=== PATIENT | female | born 1940 | race Caucasian/White ===

== ENCOUNTER 2017-12-23 06:53 | Inpatient (IN) | payer MEDICARE ==
[2017-12-23] MEDS ORDERED: Ondansetron INJ* 2 MG/ML VIAL IV ONE (07:08)
[2017-12-23] MEDS ORDERED: NS 0.9% 1000 ML* 1,000 ML IV ONE ×2 (07:08→16:22)
[2017-12-23] MEDS ORDERED: fentaNYL* 50 MCG/ML 2 ML VIAL (100 MCG VIAL) IV SLOW PU ONE ×2 (07:10→08:14)
--- NOTE | 2017-12-23 07:22 | ED ---
Abdominal Pain/Female - HPI Summary HPI Summary: Patient is a 77-year-old female who presents emergency department for severe abdominal pain started around 0400 today. Associated symptoms of shortness of breath. Patient denies fever, chest pain, vomiting, diarrhea, constipation, urinary symptoms. Surgical history of appendectomy. Symptoms are moderate in severity. Movement makes symptoms worse. Nothing makes symptoms better. Pain does not radiate into back. Past medical history of asthma, diabetes and hypercholesterolemia. - History of Current Complaint Chief Complaint: EDAbdPain Stated Complaint: ABD PAIN Time Seen by Provider: 12/23/17 07:02 Hx Obtained From: Patient Pain Intensity: 10 Allergies/Adverse Reactions: Allergies Allergy/AdvReac Type Severity Reaction Status Date / Time formoterol [From Dulera] Allergy Unknown Verified 12/23/17 07:16 Reaction Details mometasone furoate Allergy Unknown Verified 12/23/17 07:16 [From Dulera] Reaction Details morphine Allergy Unknown Verified 12/23/17 07:16 Reaction Details oxycodone [From Percocet] Allergy Unknown Verified 12/23/17 07:16 Reaction Details povidone-iodine Allergy Unknown Verified 12/23/17 07:16 [From Betadine] Reaction Details propoxyphene [From Darvon] Allergy Unknown Verified 12/23/17 07:16 Reaction Details soap [From Betadine] Allergy Unknown Verified 12/23/17 07:16 Reaction Details tramadol Allergy Unknown Verified 12/23/17 07:16 Reaction Details adhesives Allergy Unknown Uncoded 01/03/13 15:06 Reaction Details Home Medications: Home Medications Albuterol inh POWDER (NF) [Proair Respiclick] 1 puff INH DAILY 12/23/17 [ History Confirmed 12/23/17] Cholecalciferol TAB* [Vitamin D TAB*] 1,000 unit PO DAILY 12/23/17 [History Confirmed 12/23/17] Cyanocobalamin (Vitamin B-12) [Vitamin B-12] 100 mcg PO DAILY 12/23/17 [History Confirmed 12/23/17] Docusate Sodium [Colace] 100 mg PO DAILY 12/23/17 [History Confirmed 12/23/17] Levocetirizine Dihydrochloride [Levocetirizine Dihydrochl] 5 mg PO DAILY [History Confirmed 12/23/17] Linagliptin/Metformin HCl [Jentadueto Xr 5-1000 mg] 1 tab PO DAILY 12/23/17 [ History Confirmed 12/23/17] Meclizine TAB* [Antivert 12.5 TAB*] 25 mg PO TID PRN 12/23/17 [History Confirmed 12/23/17] Menthol [Aspercreme Heat] 10 % EX SEE INSTRUCTIONS 12/23/17 [History Confirmed 12/23/17] Metaxalone TAB* [Skelaxin TAB*] 800 mg PO TID 12/23/17 [History Confirmed ] Mometasone 220 MCG MDI * [Asmanex 220 MCG MDI *] 1 puff INH DAILY 12/23/17 [ History Confirmed 12/23/17] Montelukast Sodium TAB* [Singulair TAB*] 10 mg PO DAILY 12/23/17 [History Confirmed 12/23/17] [place]-3 Fatty Acids [[place]-3] 1,000 mg PO DAILY 12/23/17 [History Confirmed ] Quinapril HCl 5 mg PO DAILY 12/23/17 [History Confirmed 12/23/17] tiZANidine TAB* [Zanaflex TAB*] 4 mg PO BEDTIME 12/23/17 [History Confirmed ] PMH/Surg Hx/FS Hx/Imm Hx Previously Healthy: Yes Musculoskeletal History: Denies: Hx Osteoporosis Infectious Disease History: No Infectious Disease History: Denies: Traveled Outside the [place] in Last 30 Days - Family History Known Family History: Positive: Other - Noncontributory - Social History Occupation: Retired Lives: Alone Alcohol Use: None Substance Use Type: Reports: None Smoking Status (MU): Former Smoker Review of Systems Constitutional: Negative Negative: Fever, Chills Eyes: Negative ENT: Negative Cardiovascular: Negative Positive: Shortness Of Breath Positive: Abdominal Pain. Negative: Vomiting, Diarrhea, Nausea Genitourinary: Negative Neurological: Negative All Other Systems Reviewed And Are Negative: Yes Physical Exam Triage Information Reviewed: Yes Vital Signs On Initial Exam: Initial Vitals Pulse Resp Pulse Ox 103 33 95 12/23/17 06:56 12/23/17 06:56 12/23/17 06:56 Vital Signs Reviewed: Yes Appearance: Positive: Pain Distress - Pt. sitting up in bed, appears very uncomfortable. Breathing fast. Skin: Positive: Warm, Dry Head/Face: Positive: Normal Head/Face Inspection Eyes: Positive: Normal, EOMI Neck: Positive: Supple Respiratory/Lung Sounds: Positive: Clear to Auscultation, Breath Sounds Present Cardiovascular: Positive: Normal, RRR, Other - Good palpable pulses in all extremities.. Negative: Leg Edema Left, Leg Edema Right Abdomen Description: Positive: Other: - Distended. Significantly tender in all quadrants with guarding. No rigidity. Musculoskeletal: Positive: Normal, Strength/ROM Intact Neurological: Positive: Normal, CN Intact II-III Psychiatric: Positive: Anxious - Jax Coma Scale Best Eye Response: 4 - Spontaneous Best Motor Response: 6 - Obeys Commands Best Verbal Response: 5 - Oriented Coma Scale Total: 15 Diagnostics - Vital Signs Vital Signs Temp Pulse Resp BP Pulse Ox 12/23/17 07:00 103 23 96 12/23/17 06:58 97.3 F 98 28 143/108 95 12/23/17 06:57 26 143/108 12/23/17 06:56 103 33 95 - Laboratory Result Diagrams: 12/23/17 16:33 12/23/17 16:53 Lab Statement: Any lab studies that have been ordered have been reviewed, and results considered in the medical decision making process. Abdominal Pain Fem Course/Dx - Course Course Of Treatment: Pt. presenting with severe diffuse abdominal pain. Afebrile. Mildly hypertensive and tachycardic. Tachycardic. Blood work and CT scan ordered. Patient started IV fluids, monitor, fentanyl for pain and Zofran. (Adverse reaction of hallucinations to morphine). CT abd/pelvis per radiology: IMPRESSION: There is free intraperitoneal air noted suggestive of perforated viscus. Mucosal thickening is noted in the gastric antrum and duodenum. A perforated ulcer should. BE considered. VJ Hammond was notified of the results by phone at [address] Rosa Reynolds, was immediately called after I spoke with radiologist. Dr. Lee examined pt. in the ER at 0900. He plans for emergent surgery. Zosyn started. Pt. has remained stable in the ER. Pt. made phone call to daughter and informed her of plan. - Diagnoses Differential Diagnosis: Positive: Abdominal Aortic Aneurysm, Appendicitis, Bowel Obstruction, Constipation, Diverticulitis, Gall Bladder Disease, Hepatitis , Pancreatitis, Renal Colic Provider Diagnoses: Perforated ulcer - Critical Care Time Critical Care Time: 30-74 min - 30 minutes: direct pt. care, surgical consult. Discharge - Sign-Out/Discharge Documenting (check all that apply): Patient Departure - Discharge Plan Condition: Stable Disposition: ADMITTED TO [facility] - Billing Disposition and Condition Condition: STABLE Disposition: Admitted to [facility]
[2017-12-23 07:28] LABS: ABS Basophils 0 10^3/ul (0-0.2); ABS Eosinophils 0 10^3/ul (0-0.6); ABS Lymphocytes 1.5 10^3/ul (1.0-4.8); ABS Monocytes 0.5 10^3/ul (0-0.8); ABS Neutrophils 14.2 10^3/ul (1.5-7.7); ABS Nucleated RBC 0 10^3/ul; Eosinophil % 0.1 % (0-6); Hematocrit 44 % (35-47); Hemoglobin 14.8 g/dl (12.0-16.0); Lymphocyte % 9.2 % (25-47); Mean Corpuscular HGB Conc 33 g/dl (31-36); Mean Corpuscular Hemoglobin 29 pg (27-31); Mean Corpuscular Volume 87 fL (80-97); Mean Platelet Volume 7.4 um3 (7.4-10.4); Nucleated Red Blood Cells % 0; Platelet Count 404 10^3/ul (150-450); Red Blood Count 5.11 10^6/ul (4.00-5.40); Red Cell Distribution Width 13 % (10.5-15); White Blood Count 16.3 10^3/ul (3.5-10.8)
--- NOTE | 2017-12-23 07:56 | RAD ---
Indication: Shortness of breath. Single frontal view of the chest performed at 0720 hours was reviewed. Comparison is made with previous exam dated October 30, 2010. No mediastinal shift is noted. Heart is of normal size and configuration. Bibasilar atelectasis. No definite pneumonia is identified. IMPRESSION: NO ACTIVE CARDIOPULMONARY DISEASE IS NOTED. R1NF
[2017-12-23 08:02] LABS: EGFR Non-African American 45.5 (>60)
[2017-12-23] MEDS ORDERED: Iodixanol* (CONTRAST) 320 MG/ML 100 ML SDV IV ONE (08:11)
--- NOTE | 2017-12-23 08:49 | RAD ---
Indication: Abdominal pain Contrast: Administered 97.3 ml of OMNIPAQUE 300 mg/ml CT of the abdomen and pelvis was performed after oral and IV contrast administration. Coronal and sagittal reconstructed images were obtained. The lung bases demonstrate no pleural fluid, nodules or masses. Bibasilar atelectasis is noted. The heart demonstrates no pericardial effusion. The liver is normal in size. No focal lesions or intrahepatic duct dilatation. The spleen is normal in size. There is free intraperitoneal air noted. There is mucosal thickening of the duodenum and gastric antrum perforated ulcer should BE considered. Edema is noted in this area. The pancreas demonstrates no mass or pancreatic ductal dilatation. Calcifications are noted in the pancreatic head. No adrenal masses are noted. The kidneys demonstrate symmetric nephrograms. No focal masses are noted. Aorta and inferior vena cava are unremarkable. Small bowel demonstrates no abnormal dilatation. Diverticulosis without definite evidence of diverticulitis is noted. No retroperitoneal adenopathy is noted. CT of the pelvis demonstrates no free fluid. The urinary bladder is otherwise unremarkable. Patient appears to be status post hysterectomy. IMPRESSION: There is free intraperitoneal air noted suggestive of perforated viscus. Mucosal thickening is noted in the gastric antrum and duodenum. A perforated ulcer should BE considered. VJ Hammond was notified of the results by phone at 846 hours.
[2017-12-23] MEDS ORDERED: Piperacillin/Tazobac ADVAN(*) 3.375 GM in NS 0.9% 100 ML* 100 ML IVPB ONE (09:09)
[2017-12-23] MEDS ORDERED: Piperacillin/Tazobactam VIAL*) 3.375 GM VIAL (COMPD & OVERRIDE) IVPB ONE (09:40)
[2017-12-23] MEDS ORDERED: fentaNYL* 50 MCG/ML 2 ML VIAL (100 MCG VIAL) ONE ×4 (10:51→16:40)
[2017-12-23] MEDS ORDERED: Midazolam* 1 MG/ML 2 ML VIAL (2 MG) ONE (10:51)
[2017-12-23] MEDS ORDERED: Rocuronium* 10 MG/ML VIAL ONE (11:12)
[2017-12-23 11:15] LABS: EGFR Non-African American 52.9 (>60)
[2017-12-23] MEDS ORDERED: Bupivacaine 0.25% W/EPI* 10 ML SDV ONE (11:37)
[2017-12-23] MEDS ORDERED: Esmolol* 10 MG/ML 10 ML (100 mg) ONE (12:17)
[2017-12-23] MEDS ORDERED: Famotidine IV* 10 MG/ML 2 ML (20 mg) ONE (12:48)
[2017-12-23] MEDS ORDERED: Dexamethasone IV* 4 MG/ML 1 ML (4 MG) ONE (12:48)
[2017-12-23] MEDS ORDERED: Propofol* 10 MG/ML 20 ML BTL IV PUSH ONE ×2 (12:48→14:18)
[2017-12-23] MEDS ORDERED: Ondansetron INJ* 2 MG/ML VIAL ONE (13:31)
[2017-12-23] MEDS ORDERED: Ondansetron INJ* 2 MG/ML VIAL IV PRN ×2 (13:41→15:23)
[2017-12-23] MEDS ORDERED: HYDROmorphone INJ* 2 MG/ML CARPUJECT SYRINGE IV PRN (13:41)
[2017-12-23] MEDS ORDERED: Acetaminophen SUPP* 650 MG SUPP PR PRN (13:41)
[2017-12-23] MEDS ORDERED: NS 0.9% 1000 ML* 1,000 ML IV SCH (13:45)
[2017-12-23] MEDS ORDERED: Labetalol IV* 5 MG/ML 20 ML VIAL ONE (13:58)
[2017-12-23] MEDS ORDERED: Pantoprazole* 80 mg IN NS 80 MG/250 ML BAG IVPB SCH ×2 (14:00→18:00)
[2017-12-23] MEDS ORDERED: Glycopyrrolate IV* 0.2 MG/ML 1 ML VIAL ONE (14:10)
--- NOTE | 2017-12-23 14:11 | RAD ---
INDICATION: NG tube placement. COMPARISON: Comparison is made with a prior CT of the abdomen and pelvis from December 23, 2017 and a prior chest x-ray study from December 23, 2017 from approximately 6 hours earlier. TECHNIQUE: 3 portable films of the chest were obtained. FINDINGS: The heart is within normal limits in size. The patient is status post intubation. The endotracheal tube tip is at the level of the clavicular heads. There is a nasogastric tube present just to the left of the midline on all 3 images. The catheter tip is likely located in the distal esophagus. There is a left basilar infiltrate which appears similar to the prior exam. There is a large amount of free intraperitoneal air as noted on the prior CT study. IMPRESSION: 1. THE NG TUBE TIP PROJECTS JUST TO LEFT OF THE MIDLINE LIKELY LOCATED IN THE DISTAL ESOPHAGUS. 2. LEFT BASILAR INFILTRATE, UNCHANGED. 3. LARGE AMOUNT OF FREE INTRAPERITONEAL AIR.
[2017-12-23] MEDS ORDERED: Naloxone* 0.4 MG/ML 1 ML VIAL ONE (14:13)
[2017-12-23] MEDS ORDERED: Neostigmine Methylsulfate* 1 MG/ML 10 ML VIAL (1 mg/ml) ONE (14:21)
[2017-12-23] MEDS ORDERED: Naloxone* 0.4 MG/ML 1 ML VIAL IV PRN (15:23)
[2017-12-23] MEDS ORDERED: Naloxone* 2 MG in NS 0.9% 250 ML* 250 ML IV PRN (15:23)
[2017-12-23] MEDS ORDERED: Levalbuterol 0.63MG/3ML NEB* UNIT OF USE INH PRN (15:23)
[2017-12-23] MEDS ORDERED: fentaNYL* 50 MCG/ML 2 ML VIAL (100 MCG VIAL) IV PRN (15:23)
[2017-12-23] MEDS ORDERED: Naloxone* 0.4 MG/ML 1 ML VIAL IV PUSH PRN (15:25)
[2017-12-23] MEDS ORDERED: Glycopyrrolate IV* 0.2 MG/ML 1 ML VIAL IV SLOW PU PRN (15:26)
[2017-12-23 16:43] LABS: ABS Basophils 0 10^3/ul (0-0.2); ABS Eosinophils 0 10^3/ul (0-0.6); ABS Lymphocytes 0.6 10^3/ul (1.0-4.8); ABS Monocytes 0.6 10^3/ul (0-0.8); ABS Neutrophils 14.7 10^3/ul (1.5-7.7); ABS Nucleated RBC 0 10^3/ul; Eosinophil % 0 % (0-6); Hematocrit 39 % (35-47); Hemoglobin 13.3 g/dl (12.0-16.0); Lymphocyte % 3.7 % (25-47); Mean Corpuscular HGB Conc 34 g/dl (31-36); Mean Corpuscular Hemoglobin 29 pg (27-31); Mean Corpuscular Volume 87 fL (80-97); Mean Platelet Volume 7.1 um3 (7.4-10.4); Nucleated Red Blood Cells % 0; Platelet Count 310 10^3/ul (150-450); Red Blood Count 4.54 10^6/ul (4.00-5.40); Red Cell Distribution Width 13 % (10.5-15); White Blood Count 15.8 10^3/ul (3.5-10.8)
[2017-12-23] MEDS: fentaNYL* 50 MCG/ML 2 ML VIAL (100 MCG VIAL) IV SLOW PU PRN ×3 (16:46→19:24)
[2017-12-23 17:27] LABS: EGFR Non-African American 51.7 (>60)
[2017-12-23] MEDS: Pantoprazole* 80 mg IN NS 80 MG/250 ML BAG IVPB SCH (17:36)
[2017-12-23] MEDS: Heparin VIAL(*) 5000 UNITS/ML VIAL (FIVE THOUSAND) SUBCUT SCH (19:25)
[2017-12-23] MEDS: Piperacillin/Tazobactam VIAL*) 3.375 GM in NS 0.9% 100 ML* 100 ML IVPB SCH (20:01)
[2017-12-23] MEDS: fentaNYL PCA* 20 ML PCA SCH (20:53)
--- NOTE | 2017-12-24 00:02 | CONS ---
PULMONARY/CRITICAL CARE CONSULTATION REPORT: DATE OF CONSULTATION: 12/23/17 CONSULTATION REQUESTED BY: Dr. Lee. REASON FOR CONSULT: Evaluation of respiratory failure. HISTORY OF PRESENT ILLNESS: The patient is a 77-year-old obese female with history of diabetes controlled by oral medications, hypertension, dyslipidemia, asthma, allergies. The patient came into the emergency room today for evaluation of abdominal pain that started around 4 a.m. today. The patient denied fevers, chest pain, vomiting, diarrhea, constipation, urinary symptoms. She had complained of shortness of breath associated with abdominal pain. She was found to have perforated bowel with free air in the peritoneum. She also noted to have mucosal thickening in the gastric atrium and duodenum. Concern for perforated peptic ulcer. The patient was emergently taken for surgery. The patient was extubated in the OR. She had procedure done under general anesthesia. She had received fentanyl of 100 mcg. She also received Versed for induction. She also was given propofol for induction. She had received a paralytic rocuronium prior to intubation. The patient was brought into PACU after extubation. She became hypoxemic in the PACU. She had oral airway placed and was bagged. Her O2 sats improved. She had another episode again while in the PACU. She did not require reintubation. She recovered eventually and is being monitored in the ICU. PAST MEDICAL HISTORY: 1. Diabetes. 2. Hypertension. 3. Obesity. 4. Asthma. 5. Allergies. 6. Dyslipidemia. PAST SURGICAL HISTORY: Appendectomy. MEDICATIONS AT HOME: 1. Albuterol. 2. Cholecalciferol. 3. Cyanocobalamin. 4. Docusate. 5. Levocetirizine. 6. Jentadueto XR. 7. Meclizine. 8. Menthol. 9. Metolazone. 10. Asmanex. 11. Singulair. 12. Quinapril. 14. Circle-3. 15. Zanaflex. ALLERGIES: FORMOTEROL, MOMETASONE, MORPHINE, OXYCODONE, BETADINE, PROPOXYPHENE , SOAP, TRAMADOL, ADHESIVES. FAMILY HISTORY: Noncontributory to current admission. SOCIAL HISTORY: The patient is retired. Former smoker. No alcohol or drug abuse. REVIEW OF SYSTEMS: All 14 systems reviewed and as per HPI. PHYSICAL EXAM: The patient is slightly drowsy, alert, awake, oriented x3. Vital Signs: Temperature 98, heart rate 87 beats per minute, respiratory rate 16 per minute, O2 sat 93% to 96% on 4 L, blood pressure 151/79. HEENT: Pupils equal, reactive to light. Mucous membranes moist. Lungs: Clear to auscultation bilaterally. Cardiovascular: S1, S2 present, regular. Abdomen: Obese. Bowel sounds present, dressing is intact from the recent surgical incision. Neuro: No focal deficits. Skin: No rash or bruise. DIAGNOSTIC STUDIES/LAB DATA: WBC count 16.3, hemoglobin 14.8, hematocrit 44, platelet count 404. Sodium 129, potassium 4.4, chloride 102, bicarb 15, BUN 15 , creatinine 1.01, lactic acid 2.1, CRP 99, lipase 358. Abdominal CT as described above in HPI. Chest x-ray showed evidence of left basilar atelectasis with no other airspace opacities. EKG showed sinus tachycardia without any acute ST, T-wave changes. IMPRESSION AND RECOMMENDATIONS: 77-year-old obese female admitted with severe abdominal pain, found to have perforated peptic ulcer status post surgery. The patient post extubation while in the PACU with episode of hypoxemia, apnea likely secondary to medication effect during post-anesthesia period. The patient's body habitus also concerning for sleep apnea which might have contributed to hypoxia. The patient is stable currently. She is on 4 L O2 with O2 sat around 96%. Titrate FiO2 as tolerated. She is hemodynamically stable. She will be closely monitored in the ICU for episodes of hypoxemia and recurrent respiratory failure. Continue with O2 supplementation at this time. Will consider BiPAP if patient noted to have persistent hypoxia or apneas. Rest of the management as per primary team. [id number]/[facility] #: [id number] [facility]
--- NOTE | 2017-12-24 02:21 | HP ---
CC: Anne Marie Galo MD; [facility] HISTORY AND PHYSICAL: DATE OF ADMISSION: 12/23/17 HISTORY OF PRESENT ILLNESS: Ms. Merino is a 77-year-old female, who presented to the emergency room with acute onset of abdominal pain that started at 4 a.m. this morning. She took by ambulance in as she lives alone. The patient was worked up in the emergency room which concluded labs and a CT scan. There was concern of air extraperitoneal and the possibility of perforated ulcer. General Surgery was called. The patient was in otherwise good health as she went to bed last night. Woke up acutely at 4 a.m. wi th abdominal pain throughout her abdomen. Pain radiates to her back. She has decreased appetite. H ad no nausea, no vomiting. No fevers or chills. Pain was only improved with narcotics which only pa rtially helped. PAST MEDICAL HISTORY: 1. Seasonal asthma. She has not been hospitalized for this. 2. Hypertension. 3. Diabetes. 4. Hypercholesterolemia. 5. Obesity. PAST SURGICAL HISTORY: 1. Appendectomy. 2. Breast reduction. 3. Abdominoplasty. MEDICATION: List reviewed. ALLERGIES: List reviewed. SOCIAL HISTORY: Nonsmoker. She lives alone. She is minimally ambulatory and has a riding chair for her stairs. Family does live nearby. REVIEW OF SYSTEMS: Intermittent shortness of breath. She denies any chest pain. No cardiac disease. No neurologic symptoms. No psychiatric illnesses. No GERD like symptoms. Chronic back pain for w hich she has been taking ibuprofen for almost 3 months. This started with 400 mg every 4 hours and t hen went to 600 mg every 4 hours. This was recently changed to Tylenol by her primary care doctor livia pedro the last week. She still does continue with the back pain. No dysuria, although she describes a urinary frequency. The patient has no change in bowel habits. She said her last colonoscopy was m any years ago, within normal limits. She has no bleeding or clotting disorders. No complications wit h anesthesia in the past. PHYSICAL EXAMINATION GENERAL: Lying in stretcher in apparent distress. HEENT: Normocephalic, traumatic. Sclerae are anicteric. Mucous membranes are dry. NECK: No lymphadenopathy. LUNGS: Clear to auscultation bilaterally. ABDOMEN: Tender diffusely with rebound tenderness diffusely. No masses or hernias noted. Healed mcrae rgical incision identified. EXTREMITIES: Show no pitting edema. RECTAL: Exam not performed. DIAGNOSTIC STUDIES/LAB DATA: Labs are reviewed, show an elevated white blood cell count, normal H a nd H. Her chemistry panel shows hyponatremia as well as mildly elevated creatinine and elevated gluc ose, but does have a lactate of 2.1. CAT scan reviewed shows pockets of air near the stomach and duodenum. No air under the diaphragm. T here is a scant free fluid. The read is consistent with perforated peptic ulcer. IMPRESSION: Perforated viscus likely stomach or duodenum. My recommendation at this point was diagn ostic laparoscopy with possible laparotomy, possible bowel resection. I outlined the following proce dure, possible omental patch at the site of the perforation if it is treatable in this fashion at the stomach or duodenum. We talked about the possibility of perforated colon and the need for resection and ostomy placement. The patient is aware of these things. We went over the risks, benefits, and a lternatives including bleeding, infection, prolonged hospitalization, stroke, AR, and even . I also talked about the possible need of additional surgeries. I told her that she will be receiving d rains both to drain her bladder and also for intraabdominal drainage. The patient's questions were a nswered with regards to this. Family members were at bedside as well during the portion of the conse nt. She will receive antibiotics and she will be maintained n.p.o. status. We will take her to the OR shortly. [id number]/[facility] #: [id number]
[2017-12-24] MEDS: Piperacillin/Tazobactam VIAL*) 3.375 GM in NS 0.9% 100 ML* 100 ML IVPB SCH ×3 (03:10→20:25)
[2017-12-24] MEDS: Heparin VIAL(*) 5000 UNITS/ML VIAL (FIVE THOUSAND) SUBCUT SCH ×3 (03:10→18:01)
[2017-12-24] MEDS: Pantoprazole* 80 mg IN NS 80 MG/250 ML BAG IVPB SCH ×2 (03:42→13:47)
[2017-12-24 05:37] LABS: ABS Basophils 0 10^3/ul (0-0.2); ABS Eosinophils 0.2 10^3/ul (0-0.6); ABS Lymphocytes 1.4 10^3/ul (1.0-4.8); ABS Monocytes 1.2 10^3/ul (0-0.8); ABS Neutrophils 13.2 10^3/ul (1.5-7.7); ABS Nucleated RBC 0 10^3/ul; Eosinophil % 1.1 % (0-6); Hematocrit 38 % (35-47); Hemoglobin 12.8 g/dl (12.0-16.0); Lymphocyte % 8.6 % (25-47); Mean Corpuscular HGB Conc 33 g/dl (31-36); Mean Corpuscular Hemoglobin 29 pg (27-31); Mean Corpuscular Volume 87 fL (80-97); Nucleated Red Blood Cells % 0; Platelet Count 281 10^3/ul (150-450); Red Blood Count 4.42 10^6/ul (4.00-5.40); Red Cell Distribution Width 13 % (10.5-15)
[2017-12-24 05:54] LABS: EGFR Non-African American 50.6 (>60)
--- NOTE | 2017-12-24 10:33 | PN ---
Progress Note - Progress Note Date of Service: 12/24/17 - [facility] progress note Note: Pt seen and examined at bedside. Overnight events reviewed. Pt reporting pain in abdomen. Denies SOB. No cough. Has abdominal drain with serosanguinous output. Has remained on 2L O2 o/n, O2 sat at 97% this am. c/o dry mouth Active Medications Generic Name Dose Route Start Last Admin Trade Name Freq PRN Reason Stop Dose Admin Acetaminophen 650 mg 12/23/17 13:41 Tylenol Supp* KS Q4H PRN FEVER/PAIN Heparin Sodium (Porcine) 5,000 units 12/23/17 17:00 12/24/17 09:24 Heparin Vial(*) SUBCUT 5,000 units Q8H FERNANDO Administration Sodium Chloride 1,000 mls @ 125 mls/hr 12/23/17 13:45 12/23/17 18:50 Ns 0.9% 1000 Ml* IV 125 mls/hr PER RATE FERNANDO Administration Piperacillin Sod/Tazobactam 100 mls @ 25 mls/hr 12/23/17 19:30 12/24/17 03:10 Sod 3.375 gm/ Sodium Chloride IVPB 25 mls/hr Q8H FERNANDO Administration Pantoprazole Sodium 80 mg in 250 mls @ 25 mls/hr 12/23/17 18:00 12/24/17 03: 42 Protonix Iv Bag* IVPB 25 mls/hr Q10H FERNANDO Administration 8 MG/HR Fentanyl Citrate 20 mls @ 0.5 mls/hr 12/23/17 20:00 12/23/17 20:53 Fentanyl Rn Maternal Child* 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 mls/hr .change Q24H FERNANDO Administration Protocol 25 MCG/HR Ondansetron HCl 4 mg 12/23/17 13:41 Zofran Inj* IV Q4H PRN NAUSEA/VOMITING Vital Signs Temp Pulse Resp BP Pulse Ox 98.7 F 94 18 124/58 97 12/24/17 08:00 12/24/17 08:00 12/24/17 08:00 12/24/17 07:00 12/24/17 08:00 O/E: Pt in NAD, lying in bed, appears comfortable HEENT: PERRLA, no JVD Lungs: Clear to auscultation b/l CVS: S1, S2+, tachycardic, murmur + Abd: Soft, BS, diminished, NGT draining bilous fluid, abd drain with serosanguinous output Ext: Normal ROM Neuro: No focal defecits Skin: No rash, dressing site intact Laboratory Results - last 24 hr 12/23/17 12/23/17 12/23/17 10:12 16:33 16:33 WBC 15.8 H RBC 4.54 Hgb 13.3 Hct 39 MCV 87 MCH 29 MCHC 34 RDW 13 Plt Count 310 MPV 7.1 L Neut % (Auto) 92.6 H Lymph % (Auto) 3.7 L Potter % (Auto) 3.6 Eos % (Auto) 0 Baso % (Auto) 0.1 Absolute Neuts (auto) 14.7 H Absolute Lymphs (auto) 0.6 L Absolute Monos (auto) 0.6 Absolute Eos (auto) 0 Absolute Basos (auto) 0 Absolute Nucleated RBC 0 Nucleated RBC % 0 Sodium 129 L Potassium 4.4 Chloride 102 Carbon Dioxide 15 L Anion Gap 12 H BUN 15 Creatinine 1.01 H Est GFR ( Amer) 64.0 Est GFR (Non-Af Amer) 52.9 BUN/Creatinine Ratio 14.9 Glucose 206 H POC Glucose (mg/dL) 254 H Lactic Acid Calcium 9.2 Lipase 12/23/17 12/23/17 12/23/17 16:53 16:53 22:53 WBC RBC Hgb Hct MCV MCH MCHC RDW Plt Count MPV Neut % (Auto) Lymph % (Auto) Potter % (Auto) Eos % (Auto) Baso % (Auto) Absolute Neuts (auto) Absolute Lymphs (auto) Absolute Monos (auto) Absolute Eos (auto) Absolute Basos (auto) Absolute Nucleated RBC Nucleated RBC % Sodium 128 L Potassium 4.8 Chloride 102 Carbon Dioxide 19 L Anion Gap 7 BUN 13 Creatinine 1.03 H Est GFR ( Amer) 62.5 Est GFR (Non-Af Amer) 51.7 BUN/Creatinine Ratio 12.6 Glucose 251 H POC Glucose (mg/dL) 216 H Lactic Acid 2.2 H* Calcium 8.4 L Lipase 201 H 12/24/17 12/24/17 12/24/17 05:07 05:26 05:26 WBC 16.0 H RBC 4.42 Hgb 12.8 Hct 38 MCV 87 MCH 29 MCHC 33 RDW 13 Plt Count 281 MPV 7.0 L Neut % (Auto) 82.9 Lymph % (Auto) 8.6 L Potter % (Auto) 7.2 H Eos % (Auto) 1.1 Baso % (Auto) 0.2 Absolute Neuts (auto) 13.2 H Absolute Lymphs (auto) 1.4 Absolute Monos (auto) 1.2 H Absolute Eos (auto) 0.2 Absolute Basos (auto) 0 Absolute Nucleated RBC 0 Nucleated RBC % 0 Sodium 130 L Potassium 4.1 Chloride 105 Carbon Dioxide 19 L Anion Gap 6 BUN 13 Creatinine 1.05 H Est GFR ( Amer) 61.2 Est GFR (Non-Af Amer) 50.6 BUN/Creatinine Ratio 12.4 Glucose 164 H POC Glucose (mg/dL) 163 H Lactic Acid Calcium 8.4 L Lipase 54 12/24/17 08:00 WBC RBC Hgb Hct MCV MCH MCHC RDW Plt Count MPV Neut % (Auto) Lymph % (Auto) Potter % (Auto) Eos % (Auto) Baso % (Auto) Absolute Neuts (auto) Absolute Lymphs (auto) Absolute Monos (auto) Absolute Eos (auto) Absolute Basos (auto) Absolute Nucleated RBC Nucleated RBC % Sodium Potassium Chloride Carbon Dioxide Anion Gap BUN Creatinine Est GFR ( Amer) Est GFR (Non-Af Amer) BUN/Creatinine Ratio Glucose POC Glucose (mg/dL) Lactic Acid 1.0 Calcium Lipase I/R: 77 y o obese f with h/o HTN, DM, asthma a/w perforated peptic ulcer s/p repair, transferred to ICU for close monitoring given episodes of desaturation post surgery. Pt has required 2L O2 o/n, O2 d/stephen this am O2 saturations remain around 92% on RA Encouraged pt to take deep breaths Incentive spirometry Has leucocytosis- likely sepsis from abd source, c/w Zosyn day#2 Lactate normalized Hyponatremia likely sec to hypovolemia, improving Elevated bl sugars- c/w Insulin as pt is NPO and could not take po Asthma- stable, no wheeze Antihypertensives on hold Pain control Has NGT at intermitent suction Feeds as per surgery recommendations. Might be able to be transitioned to med/surg floor today D/w pts daughter, bedside RN
--- NOTE | 2017-12-24 10:56 | PN ---
Progress Note - Progress Note Date of Service: 12/24/17 SOAP: Subjective: Pt seen and examined. Feeling better today. dry mouth; upper abdo pain Objective: Temp Pulse Resp BP Pulse Ox 98.7 F 98 26 124/58 92 12/24/17 08:00 12/24/17 10:18 12/24/17 10:18 12/24/17 10:18 12/24/17 10:18 Intake & Output 12/23/17 12/24/17 12/24/17 22:59 06:59 14:59 Intake Total 0 744 Output Total 820 553 240 Balance -820 191 -240 Weight 171 lb 1.259 oz a and o x3, nad abdo: soft/ mild distension, tender w/o rebound AYAKA x2 serous, non-bilious ext wnl labs noted Assessment: POD 1 omental patch tachycardic, in pain, NPO Plan: cont NPO UGI tuesday change IVF repeat labs in am SACMA to cover me until Tuesday
[2017-12-24] MEDS: NS 0.9% 1000 ML* 1,000 ML IV SCH (14:07)
[2017-12-25] MEDS: Pantoprazole* 80 mg IN NS 80 MG/250 ML BAG IVPB SCH ×3 (00:10→21:04)
[2017-12-25] MEDS: NS 0.9% 1000 ML* 1,000 ML IV SCH ×3 (00:10→22:01)
[2017-12-25] MEDS: Heparin VIAL(*) 5000 UNITS/ML VIAL (FIVE THOUSAND) SUBCUT SCH ×3 (01:01→17:35)
[2017-12-25] MEDS: fentaNYL PCA* 20 ML PCA SCH (03:37)
[2017-12-25] MEDS: Piperacillin/Tazobactam VIAL*) 3.375 GM in NS 0.9% 100 ML* 100 ML IVPB SCH ×3 (03:40→17:35)
[2017-12-25 05:25] LABS: ABS Basophils 0.1 10^3/ul (0-0.2); ABS Eosinophils 0.9 10^3/ul (0-0.6); ABS Lymphocytes 1.1 10^3/ul (1.0-4.8); ABS Monocytes 0.8 10^3/ul (0-0.8); ABS Neutrophils 11.1 10^3/ul (1.5-7.7); ABS Nucleated RBC 0 10^3/ul; Eosinophil % 6.1 % (0-6); Hematocrit 36 % (35-47); Hemoglobin 11.9 g/dl (12.0-16.0); Lymphocyte % 8.1 % (25-47); Mean Corpuscular HGB Conc 33 g/dl (31-36); Mean Corpuscular Hemoglobin 29 pg (27-31); Mean Corpuscular Volume 88 fL (80-97); Mean Platelet Volume 7.3 um3 (7.4-10.4); Nucleated Red Blood Cells % 0; Platelet Count 278 10^3/ul (150-450); Red Blood Count 4.12 10^6/ul (4.00-5.40); Red Cell Distribution Width 14 % (10.5-15)
[2017-12-25 05:37] LABS: EGFR Non-African American 48.9 (>60)
--- NOTE | 2017-12-25 06:56 | PN ---
Progress Note - Progress Note Date of Service: 12/25/17 Note: POD#2 s/p perf ulcer Afeb, remains tachy, BP OK UO adequate AYAKA's moderate serosang NGT moderate dark green Alert and coherent Mild pain No N/V Labs noted Abd- soft, min tender, incis clean Impr: s/p perf ulcer Cont abx, WBC still elev. Cont AYAKA drainage Cont NGT, dye study 12/27 Cont to monitor in ICU until medicine thinks OK to go to floor
[2017-12-25] MEDS ORDERED: HYDROmorphone INJ1* 1 MG/ML SYRINGE IV SLOW PU PRN (08:19)
[2017-12-25] MEDS: fentaNYL PATCH 25 MCG/HR TRANSDERM SCH (09:34)
[2017-12-25] MEDS ORDERED: Magnesium Sulfate 2 GM IV* 2 GM/50 ML BAG IVPB ONE (11:11)
[2017-12-25 11:25] LABS: Urine Appearance Cloudy; Urine Blood 2+ (Negative); Urine Color Yellow; Urine Ketones 1+ (Negative); Urine Protein 1+(30 mg/dL) (Negative); Urine Red Blood Cell Trace(0-2/hpf) (Absent); Urine Specific Gravity 1.018 (1.010-1.030); Urine Urobilinogen Negative (Negative); Urine White Blood Cell Trace(0-5/hpf) (Absent)
--- NOTE | 2017-12-25 11:38 | PN ---
Progress Note - Progress Note Date of Service: 12/25/17 - Pulm f/u note Note: Pt seen and examined at bedside. Pt reports mild pain after being turned and repositioned in bed. Is concerned about going to regular med/surg bed. Remains tachycardic. BP is stable. Requiring 2L O2. Active Medications Generic Name Dose Route Start Last Admin Trade Name Freq PRN Reason Stop Dose Admin Acetaminophen 650 mg 12/23/17 13:41 Tylenol Supp* ND Q4H PRN FEVER/PAIN Fentanyl 25 mcg 12/25/17 09:00 12/25/17 09:34 Duragesic Patch 25 Mcg/Hr* TRANSDERM 25 mcg Q72H FERNANDO Administration Heparin Sodium (Porcine) 5,000 units 12/23/17 17:00 12/25/17 10:12 Heparin Vial(*) SUBCUT 5,000 units Q8H FERNANDO Administration Hydromorphone HCl 0.5 mg 12/25/17 08:19 Dilaudid Inj1s* IV SLOW PU Q4H PRN PAIN Piperacillin Sod/Tazobactam 100 mls @ 25 mls/hr 12/23/17 19:30 12/25/17 03:40 Sod 3.375 gm/ Sodium Chloride IVPB 25 mls/hr Q8H FERNANDO Administration Pantoprazole Sodium 80 mg in 250 mls @ 25 mls/hr 12/23/17 18:00 12/25/17 11: 04 Protonix Iv Bag* IVPB 25 mls/hr Q10H FERNANDO Administration 8 MG/HR Sodium Chloride 1,000 mls @ 100 mls/hr 12/24/17 10:53 12/25/17 10:13 Ns 0.9% 1000 Ml* IV 100 mls/hr PER RATE FERNANDO Administration Magnesium Sulfate 2 gm in 50 mls @ 50 mls/hr 12/25/17 11:11 Magnesium Sulfate 2 Gm Iv* IVPB 12/25/17 12:10 ED ONCE ONE Potassium Phosphate 5 mmole/ 251.6667 mls @ 42 mls/hr 12/25/17 11:12 Sodium Chloride IVPB 12/25/17 17:11 ONCE ONE Ondansetron HCl 4 mg 12/23/17 13:41 Zofran Inj* IV Q4H PRN NAUSEA/VOMITING Pharmacy Profile Note 1 note 12/25/17 19:00 Fentanyl Patch Check Q Shift FOLLOW UP 0700,1900 [facility] Vital Signs Temp Pulse Resp BP Pulse Ox 99.5 F 90 14 114/54 93 12/25/17 11:27 12/25/17 11:01 12/25/17 11:01 12/25/17 11:00 12/25/17 11:01 O/E: Pt in NAD HEENT: PERRLA, NO JVD Lungs: Dimnished air entry at bases CVS: S1, S2+. regular Abd: Soft, BS+, mild tenderness, drain in place with serosanguinous drain. Slight oozing from abd incision site, gauze was applied Ext: Normal ROM Neuro: Tearful about having ot leave ICU, no focal deficits Skin: Lap incision sites look benign Laboratory Results - last 24 hr 12/24/17 12/24/17 12/24/17 12:17 15:58 20:24 WBC RBC Hgb Hct MCV MCH MCHC RDW Plt Count MPV Neut % (Auto) Lymph % (Auto) [place] % (Auto) Eos % (Auto) Baso % (Auto) Absolute Neuts (auto) Absolute Lymphs (auto) Absolute Monos (auto) Absolute Eos (auto) Absolute Basos (auto) Absolute Nucleated RBC Nucleated RBC % Sodium Potassium Chloride Carbon Dioxide Anion Gap BUN Creatinine Est GFR ( Amer) Est GFR (Non-Af Amer) BUN/Creatinine Ratio Glucose POC Glucose (mg/dL) 151 H 151 H 137 H Calcium Phosphorus Magnesium Urine Color Urine Appearance Urine pH Ur Specific [place] Urine Protein Urine Ketones Urine Blood Urine Nitrate Urine Bilirubin Urine Urobilinogen Ur Leukocyte Esterase Urine WBC (Auto) Urine RBC (Auto) Ur Squamous Epith Cells Urine Bacteria Urine Glucose 12/25/17 12/25/17 12/25/17 00:54 05:05 05:05 WBC 14.0 H RBC 4.12 Hgb 11.9 L Hct 36 MCV 88 MCH 29 MCHC 33 RDW 14 Plt Count 278 MPV 7.3 L Neut % (Auto) 79.7 Lymph % (Auto) 8.1 L [place] % (Auto) 5.7 Eos % (Auto) 6.1 H Baso % (Auto) 0.4 Absolute Neuts (auto) 11.1 H Absolute Lymphs (auto) 1.1 Absolute Monos (auto) 0.8 Absolute Eos (auto) 0.9 H Absolute Basos (auto) 0.1 Absolute Nucleated RBC 0 Nucleated RBC % 0 Sodium 133 L Potassium 3.9 Chloride 109 Carbon Dioxide 18 L Anion Gap 6 BUN 13 Creatinine 1.08 H Est GFR ( Amer) 59.2 Est GFR (Non-Af Amer) 48.9 BUN/Creatinine Ratio 12.0 Glucose 114 H POC Glucose (mg/dL) 108 H Calcium 8.3 L Phosphorus 1.8 L Magnesium 1.7 L Urine Color Urine Appearance Urine pH Ur Specific [place] Urine Protein Urine Ketones Urine Blood Urine Nitrate Urine Bilirubin Urine Urobilinogen Ur Leukocyte Esterase Urine WBC (Auto) Urine RBC (Auto) Ur Squamous Epith Cells Urine Bacteria Urine Glucose 12/25/17 12/25/17 08:22 11:07 WBC RBC Hgb Hct MCV MCH MCHC RDW Plt Count MPV Neut % (Auto) Lymph % (Auto) [place] % (Auto) Eos % (Auto) Baso % (Auto) Absolute Neuts (auto) Absolute Lymphs (auto) Absolute Monos (auto) Absolute Eos (auto) Absolute Basos (auto) Absolute Nucleated RBC Nucleated RBC % Sodium Potassium Chloride Carbon Dioxide Anion Gap BUN Creatinine Est GFR ( Amer) Est GFR (Non-Af Amer) BUN/Creatinine Ratio Glucose POC Glucose (mg/dL) 118 H Calcium Phosphorus Magnesium Urine Color Yellow Urine Appearance Cloudy Urine pH 5.0 Ur Specific [place] 1.018 Urine Protein 1+(30 mg/dl) A Urine Ketones 1+ A Urine Blood 2+ A Urine Nitrate Negative Urine Bilirubin Negative Urine Urobilinogen Negative Ur Leukocyte Esterase Negative Urine WBC (Auto) Trace(0-5/hpf) Urine RBC (Auto) Trace(0-2/hpf) Ur Squamous Epith Cells Present A Urine Bacteria Absent Urine Glucose Negative I/R: 77 y o obese f with h/o HTN, DM, asthma a/w perforated peptic ulcer s/p repair, transferred to ICU for close monitoring given episodes of desaturation post surgery. Pt requiring 2L O2, sats 95% Encouraged pt to take deep breaths C/w Incentive spirometry Has leucocytosis- likely sepsis from abd source, c/w Zosyn day#3 Lactate normalized, mild metabolic acidosis Hyponatremia likely sec to hypovolemia, improving Bl sugars better controlled- c/w Insulin c/w NPO status Surgery f/u noted Asthma- stable, no wheeze Antihypertensives on hold, to be restarted when pt able to take po Pain control, d/stephen Fentanyl drip and started on fentanyl patch and Dilaudid prn c/o sore throat , ordered, benzonate Has NGT at intermitent suction, dark green fluid draining Feeds as per surgery To be transitioned to med/surg floor today under hospitalist service. Dr Betzy jordan, awaiting edgardo back D/w bedside RN
[2017-12-25] MEDS ORDERED: Benzonatate CAP* 100 MG PO PRN (11:39)
[2017-12-25] MEDS ORDERED: Potassium Phosphate IV* 5 MMOLE in NS 0.9% 250 ML* 250 ML IVPB ONE (12:00)
[2017-12-25] MEDS: fentaNYL Patch Check Q Shift 1 NOTE FOLLOW UP SCH ×2 (12:55→18:56)
[2017-12-25] MEDS ORDERED: Magnesium Sulfate 2 GM IV* 2 GM/50 ML BAG IV ONE (17:00)
[2017-12-26] MEDS: Heparin VIAL(*) 5000 UNITS/ML VIAL (FIVE THOUSAND) SUBCUT SCH ×3 (00:49→17:38)
[2017-12-26] MEDS: Piperacillin/Tazobactam VIAL*) 3.375 GM in NS 0.9% 100 ML* 100 ML IVPB SCH ×3 (02:12→17:40)
[2017-12-26] MEDS: Pantoprazole* 80 mg IN NS 80 MG/250 ML BAG IVPB SCH ×2 (06:05→18:31)
[2017-12-26] MEDS: fentaNYL Patch Check Q Shift 1 NOTE FOLLOW UP SCH ×2 (07:14→19:00)
[2017-12-26] MEDS: NS 0.9% 1000 ML* 1,000 ML IV SCH ×2 (08:45→21:32)
--- NOTE | 2017-12-26 08:47 | PN ---
Subjective Date of Service: 12/26/17 Interval History: HOSPITALIST PROGRESS NOTE Patient seen and examined at bedside. She c/o dry mouth, sore throat due to NGT placement. Abdominal pain is controlled. Family History: Unchanged from Admission Social History: Unchanged from Admission Past Medical History: Unchanged from Admission Objective Active Medications: Acetaminophen (Tylenol Supp*) 650 mg [place] Q4H PRN PRN Reason: FEVER/PAIN Benzonatate (Tessalon Cap*) 100 mg PO BID PRN PRN Reason: SORE THROAT Fentanyl (Duragesic Patch 25 Mcg/Hr*) 25 mcg TRANSDERM Q72H [facility] Last Admin: 12/25/17 09:34 Dose: 25 mcg Heparin Sodium (Porcine) (Heparin Vial(*)) 5,000 units SUBCUT Q8H [facility] Last Admin: 12/26/17 00:49 Dose: 5,000 units Hydromorphone HCl (Dilaudid Inj1s*) 0.5 mg IV SLOW PU Q4H PRN PRN Reason: PAIN Pantoprazole Sodium (Protonix Iv Bag*) 80 mg in 250 mls @ 25 mls/hr IVPB Q10H [facility] Last Admin: 12/26/17 06:05 Dose: 25 mls/hr Sodium Chloride (Ns 0.9% 1000 Ml*) 1,000 mls @ 100 mls/hr IV PER RATE [facility] Last Admin: 12/25/17 22:01 Dose: 100 mls/hr Piperacillin Sod/Tazobactam (Sod 3.375 gm/ Sodium Chloride) 100 mls @ 200 mls/ hr IVPB Q8H [facility] Last Admin: 12/26/17 02:12 Dose: 200 mls/hr Ondansetron HCl (Zofran Inj*) 4 mg IV Q4H PRN PRN Reason: NAUSEA/VOMITING Pharmacy Profile Note (Fentanyl Patch Check Q Shift) 1 note FOLLOW UP 0700, 1900 [facility] Last Admin: 12/26/17 07:14 Dose: 1 note Vital Signs - 8 hr 12/26/17 12/26/17 12/26/17 01:45 03:28 04:12 Temperature 97.3 F Pulse Rate 100 94 Respiratory 16 Rate Blood Pressure 150/57 (mmHg) O2 Sat by Pulse 94 93 92 Oximetry Oxygen Devices in Use Now: None Appearance: Elderly lady lying in bed in [facility] Eyes: No Scleral Icterus Ears/Nose/Mouth/Throat: Mucous Membranes Moist Neck: Trachea Midline Respiratory: Symmetrical Chest Expansion and Respiratory Effort, Clear to Auscultation Cardiovascular: RRR - Normal S1 and S2 Neurological: Alert and Oriented x 3, NL Muscle Strength and Tone Result Diagrams: 12/25/17 05:05 12/25/17 05:05 Assess/Plan/Problems-Billing Assessment: Mrs Merino is a 77yo F with PMH of HTN, type 2 DM, asthma, who presented to ED with perforated peptic ulcer s/p repair. - Patient Problems (1) Perforated ulcer Comment: - S/p repair. - Management as per General surgery. - Continue PPI and Zosyn. (2) Diabetes Comment: - Controlled. - Still NPO. - Continue FS with Lispro SS. (3) Asthma Comment: - Stable. (4) HTN (hypertension) Comment: - BP trending up, but not taking PO meds yet. - Add Hydralazine IV PRN. (5) DVT prophylaxis Comment: - SQ heparin. (6) Full code status Status and Disposition: Hospitalist service will continue to follow with you.
[2017-12-26] MEDS ORDERED: Dextrose 50% Syringe 50 ML* 25 GM/50 ML SYRINGE IV PUSH PRN (10:29)
[2017-12-26] MEDS ORDERED: Albuterol 2.5 MG/3 ML NEB.SOL* (0.083%) INH PRN (10:31)
[2017-12-26] MEDS ORDERED: hydrALAZINE IV* 20 MG/ML VIAL IV SLOW PU PRN (10:32)
--- NOTE | 2017-12-26 10:34 | RAD ---
CPT II Codes: G9500 Indication: Status post omental patch of a pyloric ulcer. Approximately 120 mL of water-soluble contrast was placed into the nasogastric tube. There is distention of the stomach with decreased peristalsis. Contrast is noted extending into the duodenum. There is no definite evidence of extraluminal contrast noted. IMPRESSION: No obstruction. No evidence of extraluminal contrast. Decreased peristalsis of the stomach.
--- NOTE | 2017-12-26 12:39 | PN ---
Progress Note - Progress Note Date of Service: 12/26/17 SOAP: Subjective: Pt seen and examined. we walked the prajapati together. some flatus. continued abdo pain. thirsty, no hunger Objective: Temp Pulse Resp BP Pulse Ox 97.9 F 102 18 148/63 92 12/26/17 07:31 12/26/17 07:31 12/26/17 08:00 12/26/17 07:31 12/26/17 07:31 Intake & Output 12/25/17 12/26/17 12/26/17 22:59 06:59 14:59 Intake Total 513 668 0992 Output Total 660 650 600 Balance 315 82 480 a and o x3, nad lungs clear abdo: soft/ tender diffusely, no rebound AYAKA x2 serous, non-bilious UGI wnl Assessment: POD 3 omental patch Plan: f/u path cont PPI d/c stephens d/c NGT - done clears
[2017-12-26] MEDS: Insulin LISPRO* 1 UNITS UNIT SUBCUT SCH ×3 (14:10→21:09)
[2017-12-27] MEDS: Heparin VIAL(*) 5000 UNITS/ML VIAL (FIVE THOUSAND) SUBCUT SCH ×3 (01:11→18:04)
[2017-12-27] MEDS: Insulin LISPRO* 1 UNITS UNIT SUBCUT SCH ×5 (01:24→18:04)
[2017-12-27] MEDS: Piperacillin/Tazobactam VIAL*) 3.375 GM in NS 0.9% 100 ML* 100 ML IVPB SCH ×3 (01:53→18:04)
[2017-12-27] MEDS: Pantoprazole* 80 mg IN NS 80 MG/250 ML BAG IVPB SCH ×2 (03:28→13:30)
[2017-12-27 05:25] LABS: Hematocrit 31 % (35-47); Hemoglobin 10.2 g/dl (12.0-16.0); Mean Corpuscular HGB Conc 33 g/dl (31-36); Mean Corpuscular Hemoglobin 29 pg (27-31); Mean Corpuscular Volume 86 fL (80-97); Mean Platelet Volume 6.6 um3 (7.4-10.4); Platelet Count 282 10^3/ul (150-450); Red Blood Count 3.57 10^6/ul (4.00-5.40); Red Cell Distribution Width 14 % (10.5-15); White Blood Count 11.6 10^3/ul (3.5-10.8)
[2017-12-27 05:29] LABS: ABS Neutrophils 7.8 10^3/ul (1.5-7.7)
[2017-12-27 05:32] LABS: ABS Basophils 0 10^3/ul (0-0.2); ABS Eosinophils 0.9 10^3/ul (0-0.6); ABS Lymphocytes 1.7 10^3/ul (1.0-4.8); ABS Monocytes 1.3 10^3/ul (0-0.8); ABS Nucleated RBC 0 10^3/ul; Eosinophil % 7.6 % (0-6); Lymphocyte % 14.6 % (25-47); Nucleated Red Blood Cells % 0
[2017-12-27 05:43] LABS: EGFR Non-African American 52.9 (>60)
[2017-12-27] MEDS: NS 0.9% 1000 ML* 1,000 ML IV SCH (08:16)
[2017-12-27] MEDS: fentaNYL Patch Check Q Shift 1 NOTE FOLLOW UP SCH ×2 (08:18→19:24)
[2017-12-27] MEDS: Albuterol HFA INHALER* 8 gm MDI INH SCH (10:01)
[2017-12-27] MEDS: Lisinopril TAB* 5 MG PO SCH (10:03)
--- NOTE | 2017-12-27 10:10 | PN ---
Subjective Date of Service: 12/27/17 Interval History: Pt resting comfortably in bed. Does endorse surgical site pain, but states it is controlled with the medication. Also endorses episodes of brief, dull diffuse abdominal pain that last a few seconds then resolve. Pt is tolerating clear liquids well, and denies any nausea or vomiting. Denies diarrhea. Last BM prior to admission. Denies chest pain, shortness of breath, palpitations, dizziness or headache, numbness or tingling in extremities. Family History: Unchanged from Admission Social History: Unchanged from Admission Past Medical History: Unchanged from Admission Objective Active Medications: Acetaminophen (Tylenol Supp*) 650 mg [place] Q4H PRN PRN Reason: FEVER/PAIN Albuterol (Ventolin 2.5 Mg/3 Ml Neb.Sakshi*) 2.5 mg INH Q4H PRN PRN Reason: SOB/WHEEZING Albuterol (Ventolin Hfa Inhaler*) 2 puff INH DAILY FERNANDO Benzonatate (Tessalon Cap*) 100 mg PO BID PRN PRN Reason: SORE THROAT Dextrose (D50w Syringe 50 Ml*) 12.5 gm IV PUSH .FOR FS < 60 - SS PRN PRN Reason: FS < 60 Fentanyl (Duragesic Patch 25 Mcg/Hr*) 25 mcg TRANSDERM Q72H [facility] Last Admin: 12/25/17 09:34 Dose: 25 mcg Heparin Sodium (Porcine) (Heparin Vial(*)) 5,000 units SUBCUT Q8H [facility] Last Admin: 12/27/17 01:11 Dose: 5,000 units Hydralazine HCl (Apresoline Iv*) 5 mg IV SLOW PU Q6H PRN PRN Reason: SBP>180 Hydromorphone HCl (Dilaudid Inj1s*) 0.5 mg IV SLOW PU Q4H PRN PRN Reason: PAIN Pantoprazole Sodium (Protonix Iv Bag*) 80 mg in 250 mls @ 25 mls/hr IVPB Q10H [facility] Last Admin: 12/27/17 03:28 Dose: 25 mls/hr Sodium Chloride (Ns 0.9% 1000 Ml*) 1,000 mls @ 100 mls/hr IV PER RATE [facility] Last Admin: 12/27/17 08:16 Dose: 100 mls/hr Piperacillin Sod/Tazobactam (Sod 3.375 gm/ Sodium Chloride) 100 mls @ 200 mls/ hr IVPB Q8H [facility] Last Admin: 12/27/17 01:53 Dose: 200 mls/hr Insulin Human Lispro (Humalog*) 0 units SUBCUT Q4HR [facility]; Protocol Last Admin: 12/27/17 05:53 Dose: Not Given Lisinopril (Prinivil Tab*) 5 mg PO DAILY [facility]; Protocol Ondansetron HCl (Zofran Inj*) 4 mg IV Q4H PRN PRN Reason: NAUSEA/VOMITING Pharmacy Profile Note (Fentanyl Patch Check Q Shift) 1 note FOLLOW UP 0700, 1900 [facility] Last Admin: 12/27/17 08:18 Dose: 1 note Vital Signs - 8 hr 12/27/17 12/27/17 03:41 07:37 Temperature 98.5 F 98.4 F Pulse Rate 92 86 Respiratory 16 20 Rate Blood Pressure 143/52 146/57 (mmHg) O2 Sat by Pulse 95 97 Oximetry Oxygen Devices in Use Now: Nasal Cannula Eyes: No Scleral Icterus, PERRLA Ears/Nose/Mouth/Throat: NL Teeth, Lips, Gums, Mucous Membranes Moist Neck: NL Appearance and Movements; NL JVP, Trachea Midline Respiratory: Symmetrical Chest Expansion and Respiratory Effort, Clear to Auscultation Cardiovascular: NL Sounds; No Murmurs; No JVD, RRR, No Edema Abdominal: - - Bowel sounds present x4. Pt is passing flatus. Abdomen soft and distended. Diffuse tenderness to palpation. AYAKA x2 on right draining serosanguinous fluid. Incision sites without erythema or drainage Extremities: No Edema, No Clubbing, Cyanosis Skin: No Rash or Ulcers, No Nodules or Sclerosis Neurological: Alert and Oriented x 3, NL Muscle Strength and Tone Lines/Tubes/Other Access: Clean, Dry and Intact Peripheral IV, Clean, Dry and Intact Other Access - AYAKA x2 on right side of abdomen Nutrition: - - Tolerating clears Result Diagrams: 12/27/17 05:12 12/27/17 05:12 Microbiology and Other Data: Microbiology 12/23/17 16:33 Nasal Screen MRSA (PCR) - Final Nasal Mrsa Not Detected Assess/Plan/Problems-Billing Assessment: Mrs Merino is a 77yo F with PMH of HTN, type 2 DM, asthma, who presented to ED with perforated peptic ulcer s/p repair (omental patch) with Dr. Gamboa. - Patient Problems (1) Perforated ulcer Current Visit: Yes Status: Acute Code(s): K27.5 - CHRONIC OR UNSP PEPTIC ULCER, SITE UNSP, WITH PERFORATION SNOMED Code(s): 66812551 Comment: - S/p repair with Dr. Gamboa. POD 4. - Management as per general surgery. - Pain well controlled on current regimen. Abdomen soft and diffusely tender to palpation. AYAKA x2 on right with serosanguinous drainage. Diet advanced to clears yesterday, which pt is tolerating without nausea. - Continue PPI and Zosyn - H/H trending down, likely due to blood loss in the setting of recent surgery. Normocytic normochromic. today from yesterday. Will continue to monitor. (2) Asthma Current Visit: Yes Status: Acute Code(s): J45.909 - UNSPECIFIED ASTHMA, UNCOMPLICATED SNOMED Code(s): 981601079 Comment: - No evidence of acute exacerbation. Lungs clear to auscultation and pt denies shortness of breath. (3) Diabetes Current Visit: Yes Status: Acute Code(s): E11.9 - TYPE 2 DIABETES MELLITUS WITHOUT COMPLICATIONS SNOMED Code(s): 36284000 Comment: - Glucose controlled, 120s-130s. Pt has not requiored any sliding scale lispro. - Continue FS Q6H with Lispro SS. Pt now on clear diet. (4) HTN (hypertension) Current Visit: Yes Status: Acute Code(s): I10 - ESSENTIAL (PRIMARY) HYPERTENSION SNOMED Code(s): 86168771 Comment: - SBP 140s. Takes quinapril at home. Lisinopril has been restarted now that taking PO clears - Does have Hydralazine IV PRN ordered, but has not required (5) DVT prophylaxis Current Visit: Yes Status: Acute Code(s): CJJ3068 - SNOMED Code(s): 424454245 Comment: - SQ heparin. (6) Full code status Current Visit: Yes Status: Acute Code(s): Z78.9 - OTHER SPECIFIED HEALTH STATUS SNOMED Code(s): 817710391 Status and Disposition: Dispo per primary team. Hospitalist service will continue to follow with you.
[2017-12-27] MEDS ORDERED: Meclizine TAB* 12.5 MG PO PRN (10:17)
[2017-12-27] MEDS ORDERED: Diazepam TAB(*) 5 MG PO PRN (10:17)
--- NOTE | 2017-12-27 10:23 | PN ---
Progress Note - Progress Note Date of Service: 12/27/17 SOAP: Subjective: Pt seen and examined. Feeling better today. no nausea, flatus. less abdo pain Objective: Temp Pulse Resp BP Pulse Ox 98.4 F 86 20 146/57 97 12/27/17 07:37 12/27/17 07:37 12/27/17 07:37 12/27/17 07:37 12/27/17 07:37 Intake & Output 12/26/17 12/27/17 12/27/17 22:59 06:59 14:59 Intake Total 2441 906 340 Output Total 340 45 750 Balance 2101 861 -410 lungs clear abdo: soft/ distended, less tender, no redness AYAKA x2 serous ext wnl labs noted Assessment: POD 4 omental patch Plan: pain control advance diet home meds change IVF
[2017-12-27] MEDS: D5W 1/2 NS KCl 20 Meq 1000 ML* 1,000 ML IV SCH (11:54)
[2017-12-27] MEDS: Metaxalone TAB* 800 MG PO SCH ×2 (13:31→22:14)
[2017-12-28] MEDS: Insulin LISPRO* 1 UNITS UNIT SUBCUT SCH ×4 (00:01→18:06)
[2017-12-28] MEDS: Pantoprazole* 80 mg IN NS 80 MG/250 ML BAG IVPB SCH ×3 (00:02→21:35)
[2017-12-28] MEDS: Piperacillin/Tazobactam VIAL*) 3.375 GM in NS 0.9% 100 ML* 100 ML IVPB SCH ×3 (01:57→18:07)
[2017-12-28] MEDS: Heparin VIAL(*) 5000 UNITS/ML VIAL (FIVE THOUSAND) SUBCUT SCH ×3 (01:58→16:18)
[2017-12-28] MEDS: fentaNYL Patch Check Q Shift 1 NOTE FOLLOW UP SCH ×2 (07:21→19:15)
[2017-12-28 09:05] LABS: Hematocrit 35 % (35-47); Hemoglobin 11.8 g/dl (12.0-16.0); Mean Corpuscular HGB Conc 33 g/dl (31-36); Mean Corpuscular Hemoglobin 29 pg (27-31); Mean Corpuscular Volume 87 fL (80-97); Mean Platelet Volume 6.9 um3 (7.4-10.4); Platelet Count 316 10^3/ul (150-450); Red Blood Count 4.07 10^6/ul (4.00-5.40); Red Cell Distribution Width 14 % (10.5-15); White Blood Count 9.9 10^3/ul (3.5-10.8)
--- NOTE | 2017-12-28 09:15 | PN ---
Subjective Date of Service: 12/28/17 Interval History: Pt resting comfortably in bed. Denies headache, dizziness, shortness of breath, palpitations, chest pain, N/V with clear diet, dysuria, numbness or tingling in extremities. Does endorse mild abdominal pain at surgical site, but overall feels better than yesterday. Family History: Unchanged from Admission Social History: Unchanged from Admission Past Medical History: Unchanged from Admission Objective Active Medications: Acetaminophen (Tylenol Supp*) 650 mg [place] Q4H PRN PRN Reason: FEVER/PAIN Albuterol (Ventolin 2.5 Mg/3 Ml Neb.Sakshi*) 2.5 mg INH Q4H PRN PRN Reason: SOB/WHEEZING Albuterol (Ventolin Hfa Inhaler*) 2 puff INH DAILY [facility] Last Admin: 12/27/17 10:01 Dose: 200 ml Benzonatate (Tessalon Cap*) 100 mg PO BID PRN PRN Reason: SORE THROAT Dextrose (D50w Syringe 50 Ml*) 12.5 gm IV PUSH .FOR FS < 60 - SS PRN PRN Reason: FS < 60 Diazepam (Valium Tab(*)) 5 mg PO BEDTIME PRN PRN Reason: INSOMNIA Docusate Sodium (Colace Cap*) 100 mg PO DAILY [facility] Fentanyl (Duragesic Patch 25 Mcg/Hr*) 25 mcg TRANSDERM Q72H [facility] Last Admin: 12/25/17 09:34 Dose: 25 mcg Heparin Sodium (Porcine) (Heparin Vial(*)) 5,000 units SUBCUT Q8H [facility] Last Admin: 12/28/17 01:58 Dose: 5,000 units Hydralazine HCl (Apresoline Iv*) 5 mg IV SLOW PU Q6H PRN PRN Reason: SBP>180 Hydromorphone HCl (Dilaudid Inj1s*) 0.5 mg IV SLOW PU Q4H PRN PRN Reason: PAIN Pantoprazole Sodium (Protonix Iv Bag*) 80 mg in 250 mls @ 25 mls/hr IVPB Q10H [facility] Last Admin: 12/28/17 00:02 Dose: 25 mls/hr Piperacillin Sod/Tazobactam (Sod 3.375 gm/ Sodium Chloride) 100 mls @ 200 mls/ hr IVPB Q8H [facility] Last Admin: 12/28/17 01:57 Dose: 200 mls/hr Potassium Chloride/Dextrose (D5w 1/2 Ns Kcl 20 Meq 1000 Ml*) 1,000 mls @ 50 mls /hr IV PER RATE [facility] Last Admin: 12/27/17 11:54 Dose: 50 mls/hr Insulin Human Lispro (Humalog*) 0 units SUBCUT Q6HR [facility]; Protocol Last Admin: 12/28/17 05:31 Dose: 1 units Lisinopril (Prinivil Tab*) 5 mg PO DAILY [facility]; Protocol Last Admin: 12/27/17 10:03 Dose: 5 mg Meclizine HCl (Antivert Tab*) 25 mg PO TID PRN PRN Reason: DIZZINESS Metaxalone (Skelaxin Tab*) 800 mg PO TID [facility] Last Admin: 12/27/17 22:14 Dose: 800 mg Ondansetron HCl (Zofran Inj*) 4 mg IV Q4H PRN PRN Reason: NAUSEA/VOMITING Pharmacy Profile Note (Fentanyl Patch Check Q Shift) 1 note FOLLOW UP 0700, 1900 [facility] Last Admin: 12/28/17 07:21 Dose: 1 note Vital Signs - 8 hr 12/28/17 04:32 Temperature 98.0 F Pulse Rate 87 Respiratory 16 Rate Blood Pressure 126/45 (mmHg) O2 Sat by Pulse 93 Oximetry Oxygen Devices in Use Now: None Eyes: No Scleral Icterus, PERRLA Ears/Nose/Mouth/Throat: NL Teeth, Lips, Gums, Clear Oropharnyx, Mucous Membranes Moist Neck: NL Appearance and Movements; NL JVP Respiratory: Symmetrical Chest Expansion and Respiratory Effort, Clear to Auscultation Cardiovascular: NL Sounds; No Murmurs; No JVD, No Edema Abdominal: - - Hyperactive bowel sounds x4. Abdomen is slightly distended and diffusely tender. AYAKA drain x2 on right draining serous fluid. Extremities: No Edema, No Clubbing, Cyanosis Skin: No Rash or Ulcers, No Nodules or Sclerosis Neurological: Alert and Oriented x 3, NL Muscle Strength and Tone Lines/Tubes/Other Access: Clean, Dry and Intact Peripheral IV Nutrition: - - Taking clears Result Diagrams: 12/28/17 08:55 12/27/17 05:12 Microbiology and Other Data: Microbiology 12/23/17 16:33 Nasal Screen MRSA (PCR) - Final Nasal Mrsa Not Detected Assess/Plan/Problems-Billing Assessment: Mrs Wilber is a 77yo F with PMH of HTN, type 2 DM, asthma, who presented to ED with perforated peptic ulcer s/p repair (omental patch) with Dr. Gamboa. - Patient Problems (1) Perforated ulcer Current Visit: Yes Status: Acute Code(s): K27.5 - CHRONIC OR UNSP PEPTIC ULCER, SITE UNSP, WITH PERFORATION SNOMED Code(s): 14040354 Comment: - S/p repair with Dr. Gamboa. POD 5. - Management as per general surgery. - Pain well controlled on current regimen. Abdomen soft and diffusely tender to palpation. AYAKA x2 on right with serous drainage. Diet advanced to clears, which pt is tolerating without nausea. - Continue PPI and Zosyn - H/H stable (2) Asthma Current Visit: Yes Status: Acute Code(s): J45.909 - UNSPECIFIED ASTHMA, UNCOMPLICATED SNOMED Code(s): 915694498 Comment: - No evidence of acute exacerbation. Lungs clear to auscultation and pt denies shortness of breath. (3) Diabetes Current Visit: Yes Status: Acute Code(s): E11.9 - TYPE 2 DIABETES MELLITUS WITHOUT COMPLICATIONS SNOMED Code(s): 95165094 Comment: - Glucose 182-192 today - Continue FS Q6H with Lispro SS. Pt now on clear diet. Can transition to AC HS when diet advanced. (4) HTN (hypertension) Current Visit: Yes Status: Acute Code(s): I10 - ESSENTIAL (PRIMARY) HYPERTENSION SNOMED Code(s): 28882494 Comment: - Well controlled on lisinopril - Does have Hydralazine IV PRN ordered, but has not required (5) DVT prophylaxis Current Visit: Yes Status: Acute Code(s): ORM9213 - SNOMED Code(s): 214678125 Comment: - SQ heparin. (6) Full code status Current Visit: Yes Status: Acute Code(s): Z78.9 - OTHER SPECIFIED HEALTH STATUS SNOMED Code(s): 454032466 Status and Disposition: Dispo per primary team. Hospitalist service will continue to follow with you. Attending: Terri Jamison
[2017-12-28 09:22] LABS: EGFR Non-African American 56.1 (>60)
[2017-12-28 09:35] LABS: ABS Basophils 0.1 10^3/ul (0-0.2); ABS Eosinophils 1.1 10^3/ul (0-0.6); ABS Lymphocytes 1.4 10^3/ul (1.0-4.8); ABS Monocytes 1.2 10^3/ul (0-0.8); ABS Neutrophils 6.1 10^3/ul (1.5-7.7); ABS Nucleated RBC 0 10^3/ul; Eosinophil % 10.7 % (0-6); Lymphocyte % 14.5 % (25-47); Nucleated Red Blood Cells % 0
--- NOTE | 2017-12-28 09:38 | PN ---
Progress Note - Progress Note Date of Service: 12/28/17 SOAP: Subjective: Pt seen and examined. Feleing better small appetite. no chills, OOB yesterday Objective: Temp Pulse Resp BP Pulse Ox 98.0 F 87 16 126/45 93 12/28/17 04:32 12/28/17 04:32 12/28/17 04:32 12/28/17 04:32 12/28/17 04:32 Intake & Output 12/27/17 12/28/17 12/28/17 22:59 06:59 14:59 Intake Total 500 845 Output Total 400 285 Balance 100 560 a and ox3, nad lungs clear b/l abdo: soft/ less distended, less tender AYAKA x2 serous no calf tenderness labs noted Path P Assessment: POD 5 omental patch for perforated PUD Plan: advance diet cont abx for 2 more days PO pain control posibly stay through weekend
[2017-12-28] MEDS: fentaNYL PATCH 25 MCG/HR TRANSDERM SCH (09:39)
[2017-12-28] MEDS: Docusate CAP* 100 MG PO SCH (09:39)
[2017-12-28] MEDS: Lisinopril TAB* 5 MG PO SCH (09:45)
[2017-12-28] MEDS: Metaxalone TAB* 800 MG PO SCH ×3 (09:45→21:37)
[2017-12-28] MEDS: Albuterol HFA INHALER* 8 gm MDI INH SCH (09:46)
[2017-12-28] MEDS: D5W 1/2 NS KCl 20 Meq 1000 ML* 1,000 ML IV SCH (11:14)
[2017-12-29] MEDS: Insulin LISPRO* 1 UNITS UNIT SUBCUT SCH ×5 (00:41→21:32)
[2017-12-29] MEDS: Heparin VIAL(*) 5000 UNITS/ML VIAL (FIVE THOUSAND) SUBCUT SCH ×3 (00:41→15:29)
[2017-12-29] MEDS: Piperacillin/Tazobactam VIAL*) 3.375 GM in NS 0.9% 100 ML* 100 ML IVPB SCH ×3 (02:02→17:38)
[2017-12-29] MEDS: fentaNYL Patch Check Q Shift 1 NOTE FOLLOW UP SCH ×2 (07:14→19:16)
[2017-12-29] MEDS: D5W 1/2 NS KCl 20 Meq 1000 ML* 1,000 ML IV SCH (08:53)
[2017-12-29] MEDS: Pantoprazole* 80 mg IN NS 80 MG/250 ML BAG IVPB SCH ×3 (09:02→20:21)
[2017-12-29] MEDS: Docusate CAP* 100 MG PO SCH (09:16)
[2017-12-29] MEDS: Albuterol HFA INHALER* 8 gm MDI INH SCH (09:18)
[2017-12-29] MEDS: Lisinopril TAB* 5 MG PO SCH (09:19)
[2017-12-29] MEDS: Metaxalone TAB* 800 MG PO SCH ×3 (09:19→21:33)
[2017-12-29] MEDS: metFORMIN* 1,000 MG TAB PO SCH ×2 (10:13→10:14)
[2017-12-29] MEDS ORDERED: Insulin LISPRO* 1 UNITS UNIT SUBCUT SCH (12:00)
--- NOTE | 2017-12-29 12:31 | PN ---
Subjective Date of Service: 12/29/17 Interval History: Pt resting comfortably in bed. Says pain well controlled on current regimen. Does endorse vertigo, which she has a history of and takes meclizine for at home. Denies chest pain, shortness of breath, lightheadedness, headache, abdominal pain. Tolerating full liquid diet without nausea. Family History: Unchanged from Admission Social History: Unchanged from Admission Past Medical History: Unchanged from Admission Objective Active Medications: Acetaminophen (Tylenol Supp*) 650 mg IL Q4H PRN PRN Reason: FEVER/PAIN Albuterol (Ventolin 2.5 Mg/3 Ml Neb.Sakshi*) 2.5 mg INH Q4H PRN PRN Reason: SOB/WHEEZING Albuterol (Ventolin Hfa Inhaler*) 2 puff INH DAILY [facility] Last Admin: 12/29/17 09:18 Dose: 2 ml Benzonatate (Tessalon Cap*) 100 mg PO BID PRN PRN Reason: SORE THROAT Dextrose (D50w Syringe 50 Ml*) 12.5 gm IV PUSH .FOR FS < 60 - SS PRN PRN Reason: FS < 60 Diazepam (Valium Tab(*)) 5 mg PO BEDTIME PRN PRN Reason: INSOMNIA Docusate Sodium (Colace Cap*) 100 mg PO DAILY [facility] Last Admin: 12/29/17 09:16 Dose: 100 mg Fentanyl (Duragesic Patch 25 Mcg/Hr*) 25 mcg TRANSDERM Q72H [facility] Last Admin: 12/28/17 09:39 Dose: 25 mcg Heparin Sodium (Porcine) (Heparin Vial(*)) 5,000 units SUBCUT Q8H [facility] Last Admin: 12/29/17 09:16 Dose: 5,000 units Hydralazine HCl (Apresoline Iv*) 5 mg IV SLOW PU Q6H PRN PRN Reason: SBP>180 Hydromorphone HCl (Dilaudid Inj1s*) 0.5 mg IV SLOW PU Q4H PRN PRN Reason: PAIN Last Admin: 12/28/17 18:51 Dose: 0.5 mg Pantoprazole Sodium (Protonix Iv Bag*) 80 mg in 250 mls @ 25 mls/hr IVPB Q10H [facility] Last Admin: 12/29/17 09:02 Dose: 25 mls/hr Piperacillin Sod/Tazobactam (Sod 3.375 gm/ Sodium Chloride) 100 mls @ 200 mls/ hr IVPB Q8H [facility] Last Admin: 12/29/17 10:01 Dose: 200 mls/hr Potassium Chloride/Dextrose (D5w 1/2 Ns Kcl 20 Meq 1000 Ml*) 1,000 mls @ 50 mls /hr IV PER RATE [facility] Last Admin: 12/29/17 08:53 Dose: 50 mls/hr Insulin Human Lispro (Humalog*) 0 units SUBCUT ACHS [facility]; Protocol Lisinopril (Prinivil Tab*) 5 mg PO DAILY [facility]; Protocol Last Admin: 12/29/17 09:19 Dose: 5 mg Meclizine HCl (Antivert Tab*) 25 mg PO TID PRN PRN Reason: DIZZINESS Metaxalone (Skelaxin Tab*) 800 mg PO TID [facility] Last Admin: 12/29/17 09:19 Dose: 800 mg Metformin HCl (Glucophage*) 1,000 mg PO DAILY [facility] Last Admin: 12/29/17 10:14 Dose: Not Given Ondansetron HCl (Zofran Inj*) 4 mg IV Q4H PRN PRN Reason: NAUSEA/VOMITING Pharmacy Profile Note (Fentanyl Patch Check Q Shift) 1 note FOLLOW UP 0700, 1900 [facility] Last Admin: 12/29/17 07:14 Dose: 1 note Vital Signs - 8 hr 12/29/17 12/29/17 12/29/17 04:33 05:57 07:43 Temperature 98.1 F 97.4 F Pulse Rate 93 94 92 Respiratory 16 24 16 Rate Blood Pressure 151/59 123/49 (mmHg) O2 Sat by Pulse 95 94 95 Oximetry 12/29/17 12/29/17 12/29/17 08:00 08:20 09:19 Temperature 97.2 F Pulse Rate 88 Respiratory 18 14 18 Rate Blood Pressure 128/78 (mmHg) O2 Sat by Pulse 100 Oximetry 12/29/17 12:17 Temperature Pulse Rate Respiratory 16 Rate Blood Pressure (mmHg) O2 Sat by Pulse Oximetry Oxygen Devices in Use Now: None Eyes: No Scleral Icterus, PERRLA Ears/Nose/Mouth/Throat: NL Teeth, Lips, Gums, Mucous Membranes Moist Neck: NL Appearance and Movements; NL JVP, Trachea Midline Respiratory: Symmetrical Chest Expansion and Respiratory Effort, Clear to Auscultation Cardiovascular: NL Sounds; No Murmurs; No JVD, RRR, No Edema Abdominal: - - Diffuse mild tenderness. AYAKA drains x2 draining serous fluid on right side. Surgical incisions without erythema or drainage. Bowel sounds WNL. Extremities: No Edema, No Clubbing, Cyanosis Skin: No Rash or Ulcers Neurological: Alert and Oriented x 3, NL Muscle Strength and Tone Nutrition: Taking PO's Result Diagrams: 12/28/17 08:55 12/28/17 08:55 Microbiology and Other Data: Microbiology 12/23/17 16:33 Nasal Screen MRSA (PCR) - Final Nasal Mrsa Not Detected Assess/Plan/Problems-Billing Assessment: Mrs Merino is a 77yo F with PMH of HTN, type 2 DM, asthma, who presented to ED with perforated peptic ulcer s/p repair (omental patch) with Dr. Gamboa. - Patient Problems (1) Perforated ulcer Current Visit: Yes Status: Acute Code(s): K27.5 - CHRONIC OR UNSP PEPTIC ULCER, SITE UNSP, WITH PERFORATION SNOMED Code(s): 07950078 Comment: - S/p repair with Dr. Gamboa. POD 6 - Management as per general surgery. - Pain well controlled on current regimen. - pt tolerating full liquid diet - Continue PPI and Zosyn - H/H stable (2) Asthma Current Visit: Yes Status: Acute Code(s): J45.909 - UNSPECIFIED ASTHMA, UNCOMPLICATED SNOMED Code(s): 239208202 Comment: - No evidence of acute exacerbation. Lungs clear to auscultation and pt denies shortness of breath. (3) Diabetes Current Visit: Yes Status: Acute Code(s): E11.9 - TYPE 2 DIABETES MELLITUS WITHOUT COMPLICATIONS SNOMED Code(s): 12933736 Comment: - BG 190-213 - FS and Lispro SS AC HS. Sliding scale modified to BMI 25-30 and home metformin restarted. (4) HTN (hypertension) Current Visit: Yes Status: Acute Code(s): I10 - ESSENTIAL (PRIMARY) HYPERTENSION SNOMED Code(s): 24633951 Comment: - Well controlled on lisinopril (5) Vertigo Current Visit: Yes Status: Acute Code(s): R42 - DIZZINESS AND GIDDINESS SNOMED Code(s): 937750708 Comment: - Continue home meclizine PRN (6) DVT prophylaxis Current Visit: Yes Status: Acute Code(s): JMV3766 - SNOMED Code(s): 257633775 Comment: - SQ heparin. (7) Full code status Current Visit: Yes Status: Acute Code(s): Z78.9 - OTHER SPECIFIED HEALTH STATUS SNOMED Code(s): 336654886 Status and Disposition: Dispo per primary team. Hospitalist service will continue to follow with you.
--- NOTE | 2017-12-29 13:00 | PN ---
Progress Note - Progress Note Date of Service: 12/29/17 SOAP: Subjective:POD#s/p omental patch for perforated gastric ulcer tolerated full liquid breakfast,no nausea;had a large formed stool;reports discomfort only with activity [] Objective:afeb,VSS,O2sat 100%RA;lungs:clear bilat;heart:RRR;abd+bs,softly distended;AYAKA drains x2,serous,incisions c/d/i with faisal;ext:SCDS on;FSBS 190 [] Assessment:stable POD#6 [] Plan:cont IV abx encourage ambulation further planning per []
[2017-12-29] MEDS: Ketorolac INJ* 15 MG/ML 1 ML VIAL IV PUSH PRN (15:29)
[2017-12-30] MEDS: Heparin VIAL(*) 5000 UNITS/ML VIAL (FIVE THOUSAND) SUBCUT SCH ×3 (01:09→18:39)
[2017-12-30] MEDS: Pantoprazole* 80 mg IN NS 80 MG/250 ML BAG IVPB SCH ×3 (01:11→12:32)
[2017-12-30] MEDS: Piperacillin/Tazobactam VIAL*) 3.375 GM in NS 0.9% 100 ML* 100 ML IVPB SCH ×2 (01:51→08:57)
[2017-12-30] MEDS: D5W 1/2 NS KCl 20 Meq 1000 ML* 1,000 ML IV SCH (06:13)
[2017-12-30] MEDS: fentaNYL Patch Check Q Shift 1 NOTE FOLLOW UP SCH ×2 (06:41→18:56)
[2017-12-30] MEDS: Albuterol HFA INHALER* 8 gm MDI INH SCH (08:53)
[2017-12-30] MEDS: Ketorolac INJ* 15 MG/ML 1 ML VIAL IV PUSH PRN (08:55)
[2017-12-30] MEDS: Insulin LISPRO* 1 UNITS UNIT SUBCUT SCH ×4 (08:59→20:46)
[2017-12-30] MEDS: Metaxalone TAB* 800 MG PO SCH ×3 (09:11→20:46)
[2017-12-30] MEDS: Lisinopril TAB* 5 MG PO SCH (09:11)
[2017-12-30] MEDS: metFORMIN* 1,000 MG TAB PO SCH (09:11)
[2017-12-30] MEDS: Docusate CAP* 100 MG PO SCH (09:11)
--- NOTE | 2017-12-30 12:26 | PN ---
Subjective Date of Service: 12/30/17 Interval History: Pt resting comfortably in bed. Says she is feeling much better than yesterday. Pain well controlled on current regimen. Tolerating regular carb control diet. Denies N/V. BM today. Denies shortness of breath, chest pain, dizziness, dysuria , numbness or tingling in extremities. Family History: Unchanged from Admission Social History: Unchanged from Admission Past Medical History: Unchanged from Admission Objective Active Medications: Acetaminophen (Tylenol Supp*) 650 mg [place] Q4H PRN PRN Reason: FEVER/PAIN Albuterol (Ventolin 2.5 Mg/3 Ml Neb.Sakhsi*) 2.5 mg INH Q4H PRN PRN Reason: SOB/WHEEZING Albuterol (Ventolin Hfa Inhaler*) 2 puff INH DAILY [facility] Last Admin: 12/30/17 08:53 Dose: 2 puff Benzonatate (Tessalon Cap*) 100 mg PO BID PRN PRN Reason: SORE THROAT Dextrose (D50w Syringe 50 Ml*) 12.5 gm IV PUSH .FOR FS < 60 - SS PRN PRN Reason: FS < 60 Diazepam (Valium Tab(*)) 5 mg PO BEDTIME PRN PRN Reason: INSOMNIA Docusate Sodium (Colace Cap*) 100 mg PO DAILY [facility] Last Admin: 12/30/17 09:11 Dose: 100 mg Fentanyl (Duragesic Patch 25 Mcg/Hr*) 25 mcg TRANSDERM Q72H [facility] Last Admin: 12/28/17 09:39 Dose: 25 mcg Heparin Sodium (Porcine) (Heparin Vial(*)) 5,000 units SUBCUT Q8H [facility] Last Admin: 12/30/17 08:58 Dose: 5,000 units Hydralazine HCl (Apresoline Iv*) 5 mg IV SLOW PU Q6H PRN PRN Reason: SBP>180 Pantoprazole Sodium (Protonix Iv Bag*) 80 mg in 250 mls @ 25 mls/hr IVPB Q10H [facility] Last Admin: 12/30/17 06:41 Dose: 25 mls/hr Piperacillin Sod/Tazobactam (Sod 3.375 gm/ Sodium Chloride) 100 mls @ 200 mls/ hr IVPB Q8H [facility] Last Admin: 12/30/17 08:57 Dose: 200 mls/hr Potassium Chloride/Dextrose (D5w 1/2 Ns Kcl 20 Meq 1000 Ml*) 1,000 mls @ 50 mls /hr IV PER RATE [facility] Last Admin: 12/30/17 06:13 Dose: 50 mls/hr Insulin Human Lispro (Humalog*) 0 units SUBCUT ACHS [facility]; Protocol Last Admin: 12/30/17 08:59 Dose: 4 units Ketorolac Tromethamine (Toradol Inj*) 15 mg IV PUSH Q6H PRN PRN Reason: PAIN Last Admin: 12/30/17 08:55 Dose: 15 mg Lisinopril (Prinivil Tab*) 5 mg PO DAILY [facility]; Protocol Last Admin: 12/30/17 09:11 Dose: 5 mg Meclizine HCl (Antivert Tab*) 25 mg PO TID PRN PRN Reason: DIZZINESS Last Admin: 12/29/17 12:32 Dose: 25 mg Metaxalone (Skelaxin Tab*) 800 mg PO TID [facility] Last Admin: 12/30/17 09:11 Dose: 800 mg Metformin HCl (Glucophage*) 1,000 mg PO DAILY [facility] Last Admin: 12/30/17 09:11 Dose: 1,000 mg Ondansetron HCl (Zofran Inj*) 4 mg IV Q4H PRN PRN Reason: NAUSEA/VOMITING Pharmacy Profile Note (Fentanyl Patch Check Q Shift) 1 note FOLLOW UP 0700, 1900 [facility] Last Admin: 12/30/17 06:41 Dose: 1 note Vital Signs - 8 hr 12/30/17 12/30/17 12/30/17 08:00 08:27 09:11 Temperature 97.9 F Pulse Rate 88 Respiratory 16 16 18 Rate Blood Pressure 130/56 (mmHg) O2 Sat by Pulse 97 97 Oximetry 12/30/17 11:20 Temperature 98.6 F Pulse Rate 91 Respiratory 18 Rate Blood Pressure 134/53 (mmHg) O2 Sat by Pulse 96 Oximetry Oxygen Devices in Use Now: None Eyes: No Scleral Icterus, PERRLA Ears/Nose/Mouth/Throat: NL Teeth, Lips, Gums, Mucous Membranes Moist Neck: NL Appearance and Movements; NL JVP, Trachea Midline Respiratory: Symmetrical Chest Expansion and Respiratory Effort, Clear to Auscultation Cardiovascular: NL Sounds; No Murmurs; No JVD, RRR, No Edema Abdominal: - - NL bowel sounds. Diffuse tenderness to palpation. AYAKA drain x1 on right side of abdomen draining serous fluid Extremities: No Edema, No Clubbing, Cyanosis Skin: No Rash or Ulcers, No Nodules or Sclerosis Neurological: Alert and Oriented x 3, NL Muscle Strength and Tone Lines/Tubes/Other Access: Clean, Dry and Intact Peripheral IV Nutrition: Taking PO's Result Diagrams: 12/28/17 08:55 12/28/17 08:55 Microbiology and Other Data: Microbiology 12/23/17 16:33 Nasal Screen MRSA (PCR) - Final Nasal Mrsa Not Detected Assess/Plan/Problems-Billing Assessment: Mrs Merino is a 77yo F with PMH of HTN, type 2 DM, asthma, who presented to ED with perforated peptic ulcer s/p repair (omental patch) with Dr. Gamboa. - Patient Problems (1) Perforated ulcer Current Visit: Yes Status: Acute Code(s): K27.5 - CHRONIC OR UNSP PEPTIC ULCER, SITE UNSP, WITH PERFORATION SNOMED Code(s): 17360156 Comment: - S/p repair with Dr. Gamboa. POD 7 - Management as per general surgery. - Pain well controlled on current regimen. - pt tolerating carb controlled diet without N/V - Continue PPI and Zosyn - H/H stable (2) Asthma Current Visit: Yes Status: Acute Code(s): J45.909 - UNSPECIFIED ASTHMA, UNCOMPLICATED SNOMED Code(s): 101805531 Comment: - No evidence of acute exacerbation. Lungs clear to auscultation and pt denies shortness of breath. (3) Diabetes Current Visit: Yes Status: Acute Code(s): E11.9 - TYPE 2 DIABETES MELLITUS WITHOUT COMPLICATIONS SNOMED Code(s): 05660064 Comment: - BG 202 this AM. Pt now on carb controlled diet - FS and Lispro SS AC HS. Sliding scale modified to BMI 25-30 and home metformin restarted. (4) HTN (hypertension) Current Visit: Yes Status: Acute Code(s): I10 - ESSENTIAL (PRIMARY) HYPERTENSION SNOMED Code(s): 49286813 Comment: - Well controlled on lisinopril (5) Vertigo Current Visit: Yes Status: Acute Code(s): R42 - DIZZINESS AND GIDDINESS SNOMED Code(s): 127448430 Comment: - Continue home meclizine PRN (6) DVT prophylaxis Current Visit: Yes Status: Acute Code(s): PPG7898 - SNOMED Code(s): 085782024 Comment: - SQ heparin. (7) Full code status Current Visit: Yes Status: Acute Code(s): Z78.9 - OTHER SPECIFIED HEALTH STATUS SNOMED Code(s): 533815341 Status and Disposition: Dispo per primary team, likely d/c Tuesday. Hospitalist service will continue to follow with you. Attending: Terri Jamison
--- NOTE | 2017-12-30 13:44 | PN ---
Progress Note - Progress Note Date of Service: 12/30/17 SOAP: Subjective: Pt seen and examined. feeling better, voiding on commode, but does not want to walk much. Abdo pain when she get out of/into bed. No nausea. appetite improving. positive BM Objective: Temp Pulse Resp BP Pulse Ox 98.6 F 91 20 134/53 96 12/30/17 11:20 12/30/17 11:20 12/30/17 12:32 12/30/17 11:20 12/30/17 11:20 Intake & Output 12/29/17 12/30/17 12/30/17 22:59 06:59 14:59 Intake Total 1172 1840 360 Output Total 718 690 Balance 454 1150 360 a and o x3, nad lungs clear b/l abdo: soft/ ND/ tender at upper abd AYAKA x2 serous #1 Ayaka removed at bedside today ext wnl path no malignancy- discussed with pt Laboratory Last Values WBC 9.9 10^3/ul (3.5-10.8) 12/28/17 08:55 RBC 4.07 10^6/ul (4.00-5.40) 12/28/17 08:55 Hgb 11.8 g/dl (12.0-16.0) L 12/28/17 08:55 Hct 35 % (35-47) 12/28/17 08:55 MCV 87 fL (80-97) 12/28/17 08:55 MCH 29 pg (27-31) 12/28/17 08:55 MCHC 33 g/dl (31-36) 12/28/17 08:55 RDW 14 % (10.5-15) 12/28/17 08:55 Plt Count 316 10^3/ul (150-450) 12/28/17 08:55 MPV 6.9 um3 (7.4-10.4) L 12/28/17 08:55 Neut % (Auto) 61.7 % (38-83) 12/28/17 08:55 Lymph % (Auto) 14.5 % (25-47) L 12/28/17 08:55 [place] % (Auto) 12.2 % (0-7) H 12/28/17 08:55 Eos % (Auto) 10.7 % (0-6) H 12/28/17 08:55 Baso % (Auto) 0.9 % (0-2) 12/28/17 08:55 Absolute Neuts (auto) 6.1 10^3/ul (1.5-7.7) 12/28/17 08:55 Absolute Lymphs (auto) 1.4 10^3/ul (1.0-4.8) 12/28/17 08:55 Absolute Monos (auto) 1.2 10^3/ul (0-0.8) H 12/28/17 08:55 Absolute Eos (auto) 1.1 10^3/ul (0-0.6) H 12/28/17 08:55 Absolute Basos (auto) 0.1 10^3/ul (0-0.2) 12/28/17 08:55 Absolute Nucleated RBC 0 10^3/ul 12/28/17 08:55 Nucleated RBC % 0 12/28/17 08:55 Sodium 134 mmol/L (135-145) L 12/28/17 08:55 Potassium 3.6 mmol/L (3.5-5.0) 12/28/17 08:55 Chloride 109 mmol/L (101-111) 12/28/17 08:55 Carbon Dioxide 19 mmol/L (22-32) L 12/28/17 08:55 Anion Gap 6 mmol/L (2-11) 12/28/17 08:55 BUN 9 mg/dL (6-24) 12/28/17 08:55 Creatinine 0.96 mg/dL (0.51-0.95) H 12/28/17 08:55 Est GFR ( Amer) 67.8 (>60) 12/28/17 08:55 Est GFR (Non-Af Amer) 56.1 (>60) 12/28/17 08:55 BUN/Creatinine Ratio 9.4 (8-20) 12/28/17 08:55 Glucose 173 mg/dL (70-100) H 12/28/17 08:55 POC Glucose (mg/dL) 202 mg/dL (70-100) H 12/30/17 12:03 Lactic Acid 1.0 mmol/L (0.5-2.0) 12/24/17 08:00 Calcium 8.6 mg/dL (8.6-10.3) 12/28/17 08:55 Phosphorus 1.8 mg/dL (2.5-5.0) L 12/25/17 05:05 Magnesium 1.7 mg/dL (1.9-2.7) L 12/25/17 05:05 Total Bilirubin 0.50 mg/dL (0.2-1.0) 12/23/17 07:17 AST 19 U/L (13-39) 12/23/17 07:17 ALT 16 U/L (7-52) 12/23/17 07:17 Alkaline Phosphatase 92 U/L (34-104) 12/23/17 07:17 Troponin I 0.00 ng/mL (<0.04) 12/23/17 07:17 C-Reactive Protein 99.83 mg/L (<8.01) H 12/23/17 07:17 Total Protein 7.6 g/dL (6.4-8.9) 12/23/17 07:17 Albumin 3.9 g/dL (3.2-5.2) 12/23/17 07:17 Globulin 3.7 g/dL (2-4) 12/23/17 07:17 Albumin/Globulin Ratio 1.1 (1-3) 12/23/17 07:17 Lipase 54 U/L (11.0-82.0) 12/24/17 05:26 Urine Color Yellow 12/25/17 11:07 Urine Appearance Cloudy 12/25/17 11:07 Urine pH 5.0 (5-9) 12/25/17 11:07 Ur Specific [place] 1.018 (1.010-1.030) 12/25/17 11:07 Urine Protein 1+(30 mg/dl) (Negative) A 12/25/17 11:07 Urine Ketones 1+ (Negative) A 12/25/17 11:07 Urine Blood 2+ (Negative) A 12/25/17 11:07 Urine Nitrate Negative (Negative) 12/25/17 11:07 Urine Bilirubin Negative (Negative) 12/25/17 11:07 Urine Urobilinogen Negative (Negative) 12/25/17 11:07 Ur Leukocyte Esterase Negative (Negative) 12/25/17 11:07 Urine WBC (Auto) Trace(0-5/hpf) (Absent) 12/25/17 11:07 Urine RBC (Auto) Trace(0-2/hpf) (Absent) 12/25/17 11:07 Ur Squamous Epith Cells Present (Absent) A 12/25/17 11:07 Urine Bacteria Absent (Absent) 12/25/17 11:07 Urine Glucose Negative (Negative) 12/25/17 11:07 Hep Bs Antigen Nonreactive (Nonreactive) 12/28/17 08:55 Hepatitis C Antibody Nonreactive (Nonreactive) 12/28/17 08:55 HIV 1&2 Antibody Rapid Nonreactive (Nonreactive) 12/28/17 08:55 Assessment: POD 7 lap omental patch, Pt concerned about going home and being on her own Plan: encourage ambulation advance diet d/c IVF d/c abx possibly home Tuesday SACMA to cover me through weekend
[2017-12-30] MEDS: Pantoprazole IV* 40 MG IV SCH (15:01)
[2017-12-31] MEDS: Heparin VIAL(*) 5000 UNITS/ML VIAL (FIVE THOUSAND) SUBCUT SCH ×3 (02:26→17:37)
[2017-12-31] MEDS: Pantoprazole IV* 40 MG IV SCH ×2 (02:27→14:35)
[2017-12-31] MEDS: fentaNYL Patch Check Q Shift 1 NOTE FOLLOW UP SCH ×3 (07:11→19:17)
[2017-12-31] MEDS: Insulin LISPRO* 1 UNITS UNIT SUBCUT SCH ×6 (08:23→20:30)
--- NOTE | 2017-12-31 08:40 | PN ---
Progress Note - Progress Note Date of Service: 12/31/17 Note: S/P perf ulcer Afeb Anahi po's, No N/V Pain control OK Voiding AYAKA scant Abd benign AYAKA ready to come out, but she refuses--wants to wait for Dr Lee
[2017-12-31] MEDS: Albuterol HFA INHALER* 8 gm MDI INH SCH (09:23)
[2017-12-31] MEDS: Docusate CAP* 100 MG PO SCH ×2 (09:24→09:34)
[2017-12-31] MEDS: Lisinopril TAB* 5 MG PO SCH (09:24)
[2017-12-31] MEDS: Metaxalone TAB* 800 MG PO SCH ×3 (09:24→20:29)
[2017-12-31] MEDS: metFORMIN* 1,000 MG TAB PO SCH (09:24)
[2017-12-31] MEDS: fentaNYL PATCH 25 MCG/HR TRANSDERM SCH (09:26)
[2017-12-31] MEDS ORDERED: Dextrose 50% Syringe 50 ML* 25 GM/50 ML SYRINGE IV PUSH PRN (11:55)
--- NOTE | 2017-12-31 16:09 | PN ---
Subjective Date of Service: 12/31/17 Interval History: Ms. Merino feels well this morning. She denies pain at rest, but notes that she has moderate pain while moving from the bed to the chair or when ambulating. She reports that surgery plans to d/c her Tuesday back home. She feels good about going back home as she lives in a senior apartment and has many neighbors who can help her. She denies CP, SONB, N/V/D, dizziness. Family History: Unchanged from Admission Social History: Unchanged from Admission Past Medical History: Unchanged from Admission Objective Active Medications: Acetaminophen (Tylenol Supp*) 650 mg ID Q4H PRN Albuterol (Ventolin 2.5 Mg/3 Ml Neb.Sakshi*) 2.5 mg INH Q4H PRN Albuterol (Ventolin Hfa Inhaler*) 2 puff INH DAILY [facility] Benzonatate (Tessalon Cap*) 100 mg PO BID PRN Dextrose (D50w Syringe 50 Ml*) 12.5 gm IV PUSH .FOR FS < 60 - SS PRN Diazepam (Valium Tab(*)) 5 mg PO BEDTIME PRN Docusate Sodium (Colace Cap*) 100 mg PO DAILY [facility] Fentanyl (Duragesic Patch 25 Mcg/Hr*) 25 mcg TRANSDERM Q72H [facility] Heparin Sodium (Porcine) (Heparin Vial(*)) 5,000 units SUBCUT Q8H [facility] Hydralazine HCl (Apresoline Iv*) 5 mg IV SLOW PU Q6H PRN Insulin Human Lispro (Humalog*) 0 units SUBCUT ACHS [facility]; Protocol Insulin Human Lispro (Humalog*) 2 units SUBCUT AC [facility] Ketorolac Tromethamine (Toradol Inj*) 15 mg IV PUSH Q6H PRN Lisinopril (Prinivil Tab*) 5 mg PO DAILY [facility]; Protocol Meclizine HCl (Antivert Tab*) 25 mg PO TID PRN Metaxalone (Skelaxin Tab*) 800 mg PO TID [facility] Metformin HCl (Glucophage*) 1,000 mg PO DAILY [facility] Ondansetron HCl (Zofran Inj*) 4 mg IV Q4H PRN Pantoprazole Sodium (Protonix Iv*) 40 mg IV Q12H [facility] Vital Signs - 8 hr 12/31/17 12/31/17 12/31/17 09:24 09:26 11:04 Temperature 97.4 F Pulse Rate 86 Respiratory 16 16 16 Rate Blood Pressure 139/51 (mmHg) O2 Sat by Pulse 98 Oximetry 12/31/17 12/31/17 12/31/17 11:50 14:34 15:59 Temperature Pulse Rate 88 Respiratory 16 16 16 Rate Blood Pressure (mmHg) O2 Sat by Pulse 97 Oximetry Oxygen Devices in Use Now: None Appearance: Elderly female sitting in chair in NAD Eyes: No Scleral Icterus Ears/Nose/Mouth/Throat: Mucous Membranes Moist Neck: NL Appearance and Movements; NL JVP Respiratory: Symmetrical Chest Expansion and Respiratory Effort, Clear to Auscultation Cardiovascular: NL Sounds; No Murmurs; No JVD, RRR Abdominal: NL Sounds; No Tenderness; No Distention Extremities: No Edema, No Clubbing, Cyanosis Skin: No Rash or Ulcers Neurological: Alert and Oriented x 3 Lines/Tubes/Other Access: Clean, Dry and Intact Peripheral IV Nutrition: Taking PO's Result Diagrams: 12/28/17 08:55 12/28/17 08:55 Assess/Plan/Problems-Billing Assessment: Mrs. Merino is a 77yo F with PMH of HTN, type 2 DM, asthma, who presented to ED with perforated peptic ulcer s/p repair (omental patch) with Dr. Gamboa. - Patient Problems (1) Perforated ulcer Current Visit: Yes Status: Acute Priority: High Code(s): K27.5 - CHRONIC OR UNSP PEPTIC ULCER, SITE UNSP, WITH PERFORATION SNOMED Code(s): 67800272 Comment: - S/p repair with Dr. Gamboa, POD 8 - Management as per general surgery - Pain well controlled on current regimen - Tolerating carb controlled diet without N/V (2) Diabetes Current Visit: Yes Status: Chronic Priority: Medium Code(s): E11.9 - TYPE 2 DIABETES MELLITUS WITHOUT COMPLICATIONS SNOMED Code(s): 73936923 Comment: - BG 120 this AM, 250 at lunch - Continue lispro SS and metformin - Add lispro 2 units AC in addition to SS (3) HTN (hypertension) Current Visit: Yes Status: Chronic Priority: Medium Code(s): I10 - ESSENTIAL (PRIMARY) HYPERTENSION SNOMED Code(s): 98481790 Comment: - Well controlled on lisinopril (4) Asthma Current Visit: Yes Status: Chronic Priority: Medium Code(s): J45.909 - UNSPECIFIED ASTHMA, UNCOMPLICATED SNOMED Code(s): 980126543 Comment: - No evidence of acute exacerbation - Continue albuterol PRN (5) Vertigo Current Visit: Yes Status: Chronic Priority: Medium Code(s): R42 - DIZZINESS AND GIDDINESS SNOMED Code(s): 203878094 Comment: - Continue home meclizine PRN (6) Full code status Current Visit: Yes Status: Acute Code(s): Z78.9 - OTHER SPECIFIED HEALTH STATUS SNOMED Code(s): 998652011 (7) DVT prophylaxis Current Visit: Yes Status: Acute Code(s): ZLU4110 - SNOMED Code(s): 381733280 Comment: - SQ heparin Status and Disposition: Dispo per primary team, likely d/c Tuesday. Hospitalist service will continue to follow with you for co-medical management. Thank you for this consultation.
[2018-01-01] MEDS: Heparin VIAL(*) 5000 UNITS/ML VIAL (FIVE THOUSAND) SUBCUT SCH ×3 (01:25→17:43)
[2018-01-01] MEDS: Pantoprazole IV* 40 MG IV SCH ×2 (01:25→14:15)
[2018-01-01] MEDS: fentaNYL Patch Check Q Shift 1 NOTE FOLLOW UP SCH ×2 (06:41→18:46)
[2018-01-01 06:42] LABS: EGFR Non-African American 51.1 (>60)
[2018-01-01] MEDS: Albuterol HFA INHALER* 8 gm MDI INH SCH (07:20)
[2018-01-01] MEDS: metFORMIN* 1,000 MG TAB PO SCH (08:59)
[2018-01-01] MEDS: Lisinopril TAB* 5 MG PO SCH (08:59)
[2018-01-01] MEDS: Insulin LISPRO* 1 UNITS UNIT SUBCUT SCH ×7 (09:00→20:52)
[2018-01-01] MEDS: Docusate CAP* 100 MG PO SCH (09:02)
[2018-01-01] MEDS: Metaxalone TAB* 800 MG PO SCH ×3 (09:04→20:52)
--- NOTE | 2018-01-01 14:05 | PN ---
Progress Note - Progress Note Date of Service: 01/01/18 SOAP: Subjective: She is doing well Tolerating po Ambulating in the halls Ready to go home tomorrow Objective: Temp Pulse Resp BP Pulse Ox 98.0 F 85 16 130/58 95 01/01/18 11:14 01/01/18 11:14 01/01/18 11:14 01/01/18 11:14 01/01/18 11:14 PEX: Comfortable Lungs are clear Abd is soft and non-distended. Minimal output in AYAKA Bowel sounds are present Assessment: S/P repair of perforated ulcer-doing well Plan: D/C tomorrow Continue present care
--- NOTE | 2018-01-01 15:38 | PN ---
Subjective Date of Service: 01/01/18 Interval History: Ms. Merino feels well today. She is still having abd pain with movement, but at rest she is pain free. She feels ready to go home and is anticipating d/c tomorrow. She is requesting VNS as she would like to have some aide help at home. She denies CP, SOB, N/V/D, dizziness. Family History: Unchanged from Admission Social History: Unchanged from Admission Past Medical History: Unchanged from Admission Objective Active Medications: Acetaminophen (Tylenol Supp*) 650 mg HI Q4H PRN Albuterol (Ventolin 2.5 Mg/3 Ml Neb.Sakshi*) 2.5 mg INH Q4H PRN Albuterol (Ventolin Hfa Inhaler*) 2 puff INH DAILY [facility] Benzonatate (Tessalon Cap*) 100 mg PO BID PRN Dextrose (D50w Syringe 50 Ml*) 12.5 gm IV PUSH .FOR FS < 60 - SS PRN Diazepam (Valium Tab(*)) 5 mg PO BEDTIME PRN Docusate Sodium (Colace Cap*) 100 mg PO DAILY [facility] Heparin Sodium (Porcine) (Heparin Vial(*)) 5,000 units SUBCUT Q8H [facility] Hydralazine HCl (Apresoline Iv*) 5 mg IV SLOW PU Q6H PRN Insulin Human Lispro (Humalog*) 0 units SUBCUT ACHS [facility]; Protocol Insulin Human Lispro (Humalog*) 4 units SUBCUT AC [facility] Ketorolac Tromethamine (Toradol Inj*) 15 mg IV PUSH Q6H PRN Lisinopril (Prinivil Tab*) 5 mg PO DAILY [facility]; Protocol Meclizine HCl (Antivert Tab*) 25 mg PO TID PRN Metaxalone (Skelaxin Tab*) 800 mg PO TID [facility] Metformin HCl (Glucophage*) 1,000 mg PO DAILY [facility] Ondansetron HCl (Zofran Inj*) 4 mg IV Q4H PRN Pantoprazole Sodium (Protonix Iv*) 40 mg IV Q12H [facility] Pharmacy Profile Note (Fentanyl Patch Check Q Shift) 1 note FOLLOW UP 0700, 1900 [facility] Vital Signs - 8 hr 01/01/18 01/01/18 01/01/18 07:50 09:04 10:54 Temperature Pulse Rate Respiratory 16 18 16 Rate Blood Pressure (mmHg) O2 Sat by Pulse 98 Oximetry 01/01/18 01/01/18 01/01/18 11:14 14:18 15:23 Temperature 98.0 F 98.5 F Pulse Rate 85 84 Respiratory 16 18 20 Rate Blood Pressure 130/58 130/51 (mmHg) O2 Sat by Pulse 95 93 Oximetry Oxygen Devices in Use Now: None Appearance: Elderly woman laying in bed in NAD Eyes: No Scleral Icterus Ears/Nose/Mouth/Throat: Mucous Membranes Moist Neck: NL Appearance and Movements; NL JVP Respiratory: Symmetrical Chest Expansion and Respiratory Effort, Clear to Auscultation Cardiovascular: NL Sounds; No Murmurs; No JVD, RRR Abdominal: - - Significant tenderness to light palpation throughout Extremities: No Edema, No Clubbing, Cyanosis Skin: No Rash or Ulcers Neurological: Alert and Oriented x 3 Lines/Tubes/Other Access: Clean, Dry and Intact Peripheral IV Nutrition: Taking PO's Result Diagrams: 12/28/17 08:55 01/01/18 05:21 Assess/Plan/Problems-Billing Assessment: Mrs. Merino is a 77yo F with PMH of HTN, type 2 DM, asthma, who presented to ED with perforated peptic ulcer s/p repair (omental patch) with Dr. Gamboa. - Patient Problems (1) Perforated ulcer Current Visit: Yes Status: Acute Priority: High Code(s): K27.5 - CHRONIC OR UNSP PEPTIC ULCER, SITE UNSP, WITH PERFORATION SNOMED Code(s): 96991801 Comment: - S/p repair with Dr. Gamboa, POD 9 - Management as per general surgery - Pain well controlled on current regimen - Tolerating carb controlled diet without N/V (2) Diabetes Current Visit: Yes Status: Chronic Priority: Medium Code(s): E11.9 - TYPE 2 DIABETES MELLITUS WITHOUT COMPLICATIONS SNOMED Code(s): 64236078 Comment: - BG 120 this AM, 250 at lunch - Continue lispro SS and metformin - Add lispro 4 units AC in addition to SS - She may resume her usual lingliptin/metformin and glipizide at d/c (3) HTN (hypertension) Current Visit: Yes Status: Chronic Priority: Medium Code(s): I10 - ESSENTIAL (PRIMARY) HYPERTENSION SNOMED Code(s): 34042003 Comment: - Well controlled on lisinopril (4) Asthma Current Visit: Yes Status: Chronic Priority: Medium Code(s): J45.909 - UNSPECIFIED ASTHMA, UNCOMPLICATED SNOMED Code(s): 090585157 Comment: - No evidence of acute exacerbation - Continue albuterol PRN (5) Vertigo Current Visit: Yes Status: Chronic Priority: Medium Code(s): R42 - DIZZINESS AND GIDDINESS SNOMED Code(s): 227431737 Comment: - Continue home meclizine PRN (6) Full code status Current Visit: Yes Status: Acute Code(s): Z78.9 - OTHER SPECIFIED HEALTH STATUS SNOMED Code(s): 273314242 (7) DVT prophylaxis Current Visit: Yes Status: Acute Code(s): FYZ4288 - SNOMED Code(s): 467456207 Comment: - SQ heparin Status and Disposition: Dispo per primary team, likely d/c Tuesday. Hospitalist service will continue to follow with you for co-medical management. The patient is stable for d/c from a medical standpoint. She can resume all her usual medications without change. Thank you for this consultation.
[2018-01-02] MEDS: Heparin VIAL(*) 5000 UNITS/ML VIAL (FIVE THOUSAND) SUBCUT SCH ×2 (01:19→09:14)
[2018-01-02] MEDS: Pantoprazole IV* 40 MG IV SCH ×2 (01:19→13:21)
[2018-01-02] MEDS: fentaNYL Patch Check Q Shift 1 NOTE FOLLOW UP SCH (07:10)
[2018-01-02] MEDS ORDERED: Acetaminophen TAB* 325 MG PO ONE (08:35)
[2018-01-02] MEDS: Metaxalone TAB* 800 MG PO SCH ×2 (09:00→13:22)
[2018-01-02] MEDS: Lisinopril TAB* 5 MG PO SCH (09:01)
[2018-01-02] MEDS: metFORMIN* 1,000 MG TAB PO SCH (09:01)
[2018-01-02] MEDS: Docusate CAP* 100 MG PO SCH (09:02)
[2018-01-02] MEDS: Insulin LISPRO* 1 UNITS UNIT SUBCUT SCH ×4 (09:02→12:52)
[2018-01-02] MEDS: Albuterol HFA INHALER* 8 gm MDI INH SCH (09:14)
--- NOTE | 2018-01-02 09:45 | PN ---
Progress Note - Progress Note Date of Service: 01/02/18 SOAP: Subjective:POD#9 s/p omental patch for perforated gastric ulcer doing well;brigida solids;large uo;ambulating and using inspiron;wants to go home [] Objective:afeb;VSS;lungs:clear bilat ;heart:RRR;abd:+bs,soft;incisions C/D/I,no infection;AYAKA scant serous;ext:nontender calves [] Assessment:stable,ready for discharge home [] Plan:AYAKA drain removed and surgical faisal removed;office visit scheduled with Dr Lee 01/09/18 discharge home today []
[2018-01-02 12:01] VITALS: BP 128/54
--- NOTE | 2018-01-26 12:57 | OP ---
CC: Dr. Anne Marie Galo; [facility] OPERATIVE REPORT: DATE OF OPERATION: 12/23/17 DATE OF : 36 SURGEON: Harish Lee MD SALES ORDER ADMINISTRATOR: Anne Marie Mendez NP ANESTHESIOLOGIST: Dr. Ornelas. ANESTHESIA: General anesthesia. PRE-OP DIAGNOSIS: Perforated viscous. POST-OP DIAGNOSES: Perforated gastric ulcer. OPERATIVE PROCEDURE: Diagnostic laparoscopy, omental patch, and abdominal washout. ESTIMATED BLOOD LOSS: Minimal. FLUIDS: 1500 cc of crystalloid fluids given. DRAINS: 2 AYAKA drains #10 size. SPECIMEN: Portion of the stomach. INDICATIONS: Ms. Merino is a 77-year-old female who was admitted to the emergency room with diagnosi s of peritonitis for possible perforated viscous. I discussed with her the possibility of need to re sect bowel or stomach. Outlined the details of the procedure with diagnostic laparoscopy, possible l aparotomy, possible bowel resection. The patient agreed. We spoke about the possibility of bleeding , infection, need for additional procedures, hernia formation, recurrence of active disease. The pat ient signed consent. DESCRIPTION OF PROCEDURE: She was taken to the operating room, placed in operating table in supine p osition. Preoperative antibiotics were given. Sequential devices were placed on bilateral lower ext remities. General anesthesia was induced. Saxena catheter was inserted. The patient's abdomen was p repped and draped in the standard surgical fashion and a time-out was performed. Folds of the umbilicus were elevated anteriorly. A Veress needle inserted into the abdominal cavity. Laparoscope was inserted through a periumbilical incision through a 5-mm trocar. Veress needle was removed, there was no evidence of injury from the trocar insertion or the Veress needle. Review of the abdomen showed significant fluid in peritoneal cavity. There was murky fluid above the liver and above the spleen. It appeared that the focal area of perforation was likely the stomach. Review of the sigmoid colon appeared intact. There was no fluid in the pelvis. Additional trocars were place d in the following positions: A 12 mm in the right upper quadrant and 5 mm in the left upper quadran t. We suctioned out the fluid, moved the omentum inferiorly after the patient was placed in a revers e Trendelenburg. This exposed a prepyloric ulcer that measured approximately 1.5 cm perforated anter iorly. We did see gastric contents. There was no bleeding. It was right at the area of pylorus. I made a decision to do an omental patch at this site. We fashioned the tongue of omentum that would lay over the site without any tension. Next, 3 separate 2-0 silk sutures were placed [id number] the ulcer and prior to tying them, the tongue of omentum was brought in the site of this. We then sutured this close. It should be not ed that prior to doing this, I did cut off a portion of the ulcer and sent this as specimen. Hemosta sis was achieved with electrocautery. The Cristofer patch appeared intact, it did bring the proximal stomach up over towards the pylorus. I f elt that this did not show any evidence of stricture. We did have to dissect a little bit of the les ser curvature as it extended towards the pylorus to gain some area to throw our stitches appropriatel y. Review of the abdomen showed there was no evidence of any other issues, no evidence of bleeding a t this time. We did place an additional 5-mm trocar in the right upper quadrant to help with placing the sutures. Next, 2 #10 AYAAK drains were then brought into the 12-mm port and brought up to the right lateral port sites. They were placed both superior and inferior to the Cristofer plication. Next, we blushed out the abdomen with 3 L of warm saline, suctioned out the fluid. I felt that we had adequate closure. The patient did have an NG tube placed by the anesthesiologist and this was assur ed to be in the proximal stomach. We then allowed the abdomen to collapse, trocars were removed unde r direct vision, and all skin incisions were reapproximated along with sterile dressing. The patient tolerated the procedure well, was woken up in the OR, and transferred to the PACU in stable conditio n. [id number]/[facility] #: [id number]
--- NOTE | 2018-01-26 12:57 | DS ---
CC: Dr. Anne Marie Galo; [facility] DISCHARGE SUMMARY: DATE OF ADMISSION: DATE OF DISCHARGE: HOSPITAL COURSE: Ms. Merino is a 77-year-old female who was admitted with peritonitis and underwent urgent trip to the operating room where she underwent a diagnostic laparoscopy and Cristofer plication f or a large 1.5 cm anterior perforated prepyloric ulcer. It was felt that this ulcer was secondary to significant NSAID use for the patient's back; however, I did do a biopsy of the ulcer just to rule o ut malignancy and it showed no evidence of such. The patient improved slowly. She did have to undergo an upper GI prior to placing her on liquids and that her diet was advanced. The hospitalist service was involved in the patient's care. She did complain of significant pain thr oughout her postoperative course. Although her diet was advanced, she did do well overall without an y adverse outcome. She was concerned about going home where she lives on her own. Her family would try to help her, but she wanted to have some visiting nurse and so we set this up for her. Both of t he AYAKA drains were ultimately removed prior to her discharge home. Plan was proton pump inhibitor. These were given to the patient during her entire stay. She was dis charged on another course of this. I also discussed with her the need to undergo an EGD, need her to stay off of NSAIDs, and she will follow up in my office. The patient understands the plan and we wi ll review this. No need for EGD in the coming days, but hopefully anywhere from 2 to 3 weeks from no w. I do not believe she needs to be treated for H. pylori rather to limit her NSAID use and follow c losely with her primary care doctor and undergo a semi-urgent EGD. [id number]/[facility] #: [id number]
== END 2018-01-02 15:12 | disposition home health service (06) | DRG 326 ==
LOC: ED 06:53 → OR 09:13 → ICU 13:41 → SSU 12-25 12:50
PROVIDERS: ADMIT Surgery; ATTEND Surgery
PROC: 0DU747Z Supplement Stomach, Pylorus with Autologous Tissue Substitute, Percutaneous Endoscopic Approach (ICD-10-PCS; principal; 2017-12-25)
PROC: 0D9670Z Drainage of Stomach with Drainage Device, Via Natural or Artificial Opening (ICD-10-PCS; 2017-12-25)
PROC: 0DB64ZX Excision of Stomach, Percutaneous Endoscopic Approach, Diagnostic (ICD-10-PCS; 2017-12-25)
DX: K25.5 Chronic or unspecified gastric ulcer with perforation (principal); J96.91 Respiratory failure, unspecified with hypoxia; K65.9 Peritonitis, unspecified; E87.1 Hypo-osmolality and hyponatremia; I10 Essential (primary) hypertension; J45.909 Unspecified asthma, uncomplicated; E11.9 Type 2 diabetes mellitus without complications; E66.9 Obesity, unspecified; E78.00 Pure hypercholesterolemia, unspecified; R40.2362 Coma scale, best motor response, obeys commands, at arrival to emergency department; R40.2142 Coma scale, eyes open, spontaneous, at arrival to emergency department; R40.2252 Coma scale, best verbal response, oriented, at arrival to emergency department; E78.5 Hyperlipidemia, unspecified; E86.1 Hypovolemia; R00.0 Tachycardia, unspecified; J02.9 Acute pharyngitis, unspecified; R42 Dizziness and giddiness; T39.395A Adverse effect of other nonsteroidal anti-inflammatory drugs [NSAID], initial encounter; Y92.9 Unspecified place or not applicable; Z88.3 Allergy status to other anti-infective agents; Z88.5 Allergy status to narcotic agent; Z88.8 Allergy status to other drugs, medicaments and biological substances; Z91.048 Other nonmedicinal substance allergy status; Z87.891 Personal history of nicotine dependence; Z68.32 Body mass index [BMI] 32.0-32.9, adult
CPT/HCPCS: 36415; 71045; 74177; 74246; 80048; 80053; 81003; 81015; 83036; 83605; 83690; 83735; 84100; 84484; 85025; 86140; 86703; 86803; 87086; 87340; 87641; 88305; 88312; 88341; 88342; 93005; 94640; 96374; 96375; 99284; A9270-GY; J1100; J1170; J1644; J1885; J2250; J2310; J2405; J2543; J2704; J2710; J3010; J3475; Q9967

== ENCOUNTER 2018-08-18 12:43 | Emergency (ER) | payer MEDICARE ==
--- NOTE | 2018-08-18 13:23 | ED ---
Syncope/Near Syncope - HPI Summary HPI Summary: The patient is an 78 y/o F presenting to [facility] with a chief complaint of gradual onset ecchymosis surrounding the right eye s/p syncope three days ago. During the night on 08/15/2018, the patient reports that she got up to go the bathroom, she urinated as normal, and then she woke up on the floor approximately 30 minutes later, and woke up the next morning as normal. Following the syncopal episode, she noticed gradual worsening of bruising surrounding the right eye, primarily in the eyelid, but there have been no visual changes including blurred vision or diplopia. She denies any CP, SOB, dizziness, and headache after the fall. She reported her symptoms to her PCP, and she was advised to come to the ED. Hx DM, HLD, vertigo. Former smoker, no EtOH, no substance use. - History Of Current Complaint Chief Complaint: EDSyncope Time Seen by Provider: 08/18/18 13:06 Hx Obtained From: Patient Onset/Duration: Gradual Onset - associated symptoms, Lasting Days - three, Still Present Timing: Days Context: Loss Of Consciousness Activity At Onset: Other - going to the bathroom Associated Head Trauma: Yes Aggravating Factor(s): Nothing Alleviating Factor(s): Nothing Associated Signs And Symptoms: Other - POSITIVE: ecchymosis of right eye; NEGATIVE: CP, SOB, dizziness, headache, blurred vision, diplopia - Allergies/Home Medications Allergies/Adverse Reactions: Allergies Allergy/AdvReac Type Severity Reaction Status Date / Time formoterol [From Dulera] Allergy Unknown Verified 08/18/18 13:07 Reaction Details mometasone furoate Allergy Unknown Verified 08/18/18 13:07 [From Dulera] Reaction Details morphine Allergy Unknown Verified 08/18/18 13:07 Reaction Details oxycodone [From Percocet] Allergy Unknown Verified 08/18/18 13:07 Reaction Details povidone-iodine Allergy Unknown Verified 08/18/18 13:07 [From Betadine] Reaction Details propoxyphene [From Darvon] Allergy Unknown Verified 08/18/18 13:07 Reaction Details tramadol Allergy Unknown Verified 08/18/18 13:07 Reaction Details adhesives Allergy Unknown Uncoded 08/18/18 13:07 Reaction Details Home Medications: Home Medications Colestipol (NF) 1 gm PO TID 08/18/18 [History Confirmed 08/18/18] Docusate CAP* [Colace Cap*] 100 mg PO BID 08/18/18 [History Confirmed 08/18/18] LevoCETirizine TAB (NF) [Xyzal TAB (NF)] 5 mg PO DAILY 08/18/18 [History Confirmed 08/18/18] Menthol [Aspercreme Heat] 10 % TOPICAL DAILY PRN 08/18/18 [History Confirmed ] Montelukast Sodium TAB* [Singulair TAB*] 10 mg PO DAILY 08/18/18 [History Confirmed 08/18/18] [place]-3 Fatty Acids (Nf) [Fish Oil (NF)] 1,000 mg PO DAILY 08/18/18 [History Confirmed 08/18/18] Omeprazole CAP (NF) [Prilosec CAP* 20 MG] 20 mg PO BID 08/18/18 [History Confirmed 08/18/18] Oxybutynin TAB* [Ditropan TAB*] 5 mg PO BID 08/18/18 [History Confirmed 08/18/18 ] Ropinirole TAB* [Requip TAB*] 0.25 mg PO BEDTIME PRN 08/18/18 [History Confirmed 08/18/18] PMH/Surg Hx/FS Hx/Imm Hx Endocrine/Hematology History: Reports: Hx Diabetes - ON METFORMIN Cardiovascular History: Reports: Hx Hypercholesterolemia Denies: Hx Hypertension Respiratory History: Reports: Hx Asthma - seasonal History: Denies: Hx Renal Disease Musculoskeletal History: Reports: Hx Arthritis Denies: Hx Osteoporosis Sensory History: Reports: Hx Contacts or Glasses Denies: Hx Hearing Aid Opthamlomology History: Reports: Hx Contacts or Glasses Neurological History: Reports: Other Neuro Impairments/Disorders - hx of vertigo , ongoing episodes - Cancer History Cancer Type, Location and Year: melanoma, removed 2014 - Surgical History Surgery Procedure, Year, and Place: BREAST REDUCTION 30 years ago Hx Anesthesia Reactions: Yes - 12/23/17- hypoxia and bradycardia Infectious Disease History: No Infectious Disease History: Denies: Traveled Outside the [place] in Last 30 Days - Family History Known Family History: Positive: Diabetes - Social History Alcohol Use: None Hx Substance Use: No Substance Use Type: Reports: None Hx Tobacco Use: Yes Smoking Status (MU): Former Smoker Review of Systems Negative: Blurred Vision, Diplopia Positive: Other - ecchymosis of the right eye, primarily on the eyelid Negative: Chest Pain Negative: Shortness Of Breath Neurological: Other - NEGATIVE: dizziness Positive: Syncope. Negative: Headache All Other Systems Reviewed And Are Negative: Yes Physical Exam - Summary Physical Exam Summary: VITAL SIGNS: Reviewed. GENERAL: Patient is a well-developed and nourished female who is lying comfortable in the stretcher. Patient is not in any acute respiratory distress. HEAD AND FACE: Ecchymosis around the right eye. No hematomas or skull depressions. No sinus tenderness. EYES: PERRLA, EOMI x 2, No injected conjunctiva, no nystagmus. EARS: Hearing grossly intact. Ear canals and tympanic membranes are within normal limits. MOUTH: Oropharynx within normal limits. NECK: Supple, trachea is midline, no adenopathy, no JVD, no carotid bruit, no c- spine tenderness, neck with full ROM. CHEST: Symmetric, no tenderness at palpation LUNGS: Clear to auscultation bilaterally. No wheezing or crackles. CVS: Regular rate and rhythm, S1 and S2 present, no murmurs or gallops appreciated. ABDOMEN: Soft, non-tender. No signs of distention. No rebound no guarding, and no masses palpated. Bowel sounds are normal. EXTREMITIES: FROM in all major joints, no edema, no cyanosis or clubbing. NEURO: Alert and oriented x 3. No acute neurological deficits. Speech is normal and follows commands. SKIN: Dry and warm. GCS: 15. Triage Information Reviewed: Yes Vital Signs On Initial Exam: Initial Vitals Temp Pulse Resp BP Pulse Ox 98.0 F 69 18 208/96 97 08/18/18 12:44 08/18/18 12:44 08/18/18 12:44 08/18/18 12:44 08/18/18 12:44 Vital Signs Reviewed: Yes - Jax Coma Scale Best Eye Response: 4 - Spontaneous Best Motor Response: 6 - Obeys Commands Best Verbal Response: 5 - Oriented Coma Scale Total: 15 Diagnostics - Vital Signs Vital Signs Temp Pulse Resp BP Pulse Ox 08/18/18 13:07 20 08/18/18 12:44 98.0 F 69 18 208/96 97 - Laboratory Result Diagrams: 08/18/18 13:53 08/18/18 13:53 Lab Statement: Any lab studies that have been ordered have been reviewed, and results considered in the medical decision making process. - Radiology CXR Radiology Interpretation Completed By: Radiologist Summary of Radiographic Findings: No active cardiopulmonary disease. ED physician has reviewed this radiology report. - CT Brain CT CT Interpretation Completed By: Radiologist Summary of CT Findings: No acute intracranial pathology. Chronic small vessel ischemic changes. ED physician has reviewed this radiology report. Maxillofacial CT CT Interpretation Completed By: Radiologist Summary of CT Findings: No facial fracture. ED physician has reviewed this radiology report. - EKG 1356 Cardiac Rate: NL - 68 BPM EKG Comparison: No Significant Change - Similar to EKG taken on 12/23/2017. Summary of EKG Findings: No ST elevations. Re-Evaluation - Re-Evaluation First Eval Re-Evaluation Time: 15:45 Comment: I discussed results with the patient and need for admission based upon results. She does not want to be admitted at this time. Second Eval Re-Evaluation Time: 16:00 Comment: I discussed discharge with the plan for follow up with Dr. Galo in 3 days for repeat sodium level. Course/Dx Assessment/Plan: The patient is an 78 y/o F presenting to [facility] with a chief complaint of gradual onset ecchymosis surrounding the right eye s/p syncope three days ago. During the night on 08/15/2018, the patient reports that she got up to go to the bathroom, she urinated as normal, and then she woke up on the floor approximately 30 minutes later, and woke up the next morning as normal. Following the syncopal episode, she noticed gradual worsening of bruising surrounding the right eye, primarily in the eyelid, but there have been no visual changes, including blurred vision or diplopia. She denies any CP , SOB, dizziness, and headache after the fall. She reported her symptoms to her PCP, and she was advised to come to the ED. Hx DM, HLD, vertigo. Former smoker, no EtOH, no substance use. Blood test results without any significant abnormality except for sodium of 126, chloride of 94, creatinine of 1.16, magnesium of 1.7, and troponin of 0.00. Urinalysis is negative for UTI. Head CT IMPRESSION: NO ACUTE INTRACRANIAL PATHOLOGY. CHRONIC SMALL VESSEL ISCHEMIC CHANGES. Maxillofacial IMPRESSION: NO FACIAL FRACTURE. CXR IMPRESSION: NO ACTIVE CARDIOPULMONARY DISEASE. Patient was given magnesium by mouth. At this point, I offered the patient admission for the hyponatremia, however the patient refused. The patient is alert and oriented 3. Therefore, I discussed my physical exam and findings with Dr. Galo, head primary care physician, and she agrees with the discharge home and follow-up with her office on Tuesday, August 21, 2018. At this point the patient is hemodynamically stable alert and oriented 3. The patient will be discharged home with follow-up with PCP. Patient was given instructions that if any other symptoms appear like dizziness , lethargy, or fatigue, the patient should return to the urgent for further workup and management. She understands and agrees. - Diagnoses Provider Diagnoses: Head contusion, Hyponatremia - Physician Notifications Discussed Care of Patient With: Anne Marie Galo - family medicine Time Discussed With Above Provider: 15:55 Instructed by Provider To: Other - I discussed the patient's case with Dr. Galo. She agrees to have the patient follow up with her on 08/21/2018 for repeat sodium levels. Discharge - Sign-Out/Discharge Documenting (check all that apply): Patient Departure - Patient will be discharged home. Patient Received Moderate/Deep Sedation with Procedure: No - Discharge Plan Condition: Stable Disposition: HOME Patient Education Materials: Hyponatremia (ED), Facial Contusion (ED) Referrals: Anne Marie Galo MD [Primary Care Provider] - 08/21/18 Additional Instructions: Follow up with Dr. Galo on Tuesday, August 21, 2018, for checking your sodium levels. RETURN TO THE EMERGENCY DEPARTMENT FOR ANY NEW OR WORSENING SYMPTOMS. - Billing Disposition and Condition Condition: STABLE Disposition: Home - Attestation Statements Document Initiated by Cordell: Yes Documenting Scribe: Katherine Guillen Provider For Whom Cordell is Documenting (Include Credential): Dr. Bolivar Sher MD Scribe Attestation: Katherine Dockery scribed for Dr. Bolivar Sher MD on 08/18/18 at 1702. Scribe Documentation Reviewed: Yes Provider Attestation: The documentation as recorded by the Katherine jose accurately reflects the service I personally performed and the decisions made by me, Dr. Bolivar Sher MD Status of Scribe Document: Ready
[2018-08-18 14:07] LABS: ABS Basophils 0.1 10^3/ul (0-0.2); ABS Eosinophils 0.1 10^3/ul (0-0.6); ABS Monocytes 0.8 10^3/ul (0-0.8); ABS Neutrophils 4.3 10^3/ul (1.5-7.7); Eosinophil % 1.6 %; Hematocrit 38 % (35-47); Hemoglobin 12.8 g/dL (12.0-16.0); Lymphocyte % 27.7 %; Mean Corpuscular HGB Conc 33 g/dL (31-36); Mean Corpuscular Hemoglobin 29 pg (27-31); Mean Corpuscular Volume 87 fL (80-97); Mean Platelet Volume 7.1 fL (7.4-10.4); Nucleated Red Blood Cells % 0.1; Platelet Count 244 10^3/uL (150-450); Red Blood Count 4.41 10^6 /uL (3.70-4.87); Red Cell Distribution Width 14 % (10-15); White Blood Count 7.4 10^3/uL (3.5-10.8)
[2018-08-18 14:20] LABS: ALT 23 U/L (7-52); AST 26 U/L (13-39); Albumin 3.9 g/dL (3.2-5.2); Albumin/Globulin Ratio 1.2 (1-3); Alkaline Phosphatase 70 U/L (34-104); Anion Gap 8 mmol/L (2-11); BUN/Creatinine Ratio 16.4 (8-20); Blood Urea Nitrogen 19 mg/dL (6-24); CO2 Carbon Dioxide 24 mmol/L (22-32); Calcium 9.7 mg/dL (8.6-10.3); Chloride 94 mmol/L (101-111); EGFR African American 54.4 (>60); Globulin 3.3 g/dL (2-4); Glucose 100 mg/dL (70-100); Magnesium 1.7 mg/dL (1.9-2.7); Potassium 4.3 mmol/L (3.5-5.0); Sodium 126 mmol/L (135-145); Total Protein 7.2 g/dL (6.4-8.9)
[2018-08-18 14:33] LABS: Alcohol < 10 mg/dL (<10)
[2018-08-18 14:49] LABS: TSH (Thyroid Stimulating Horm) 0.67 mcIU/mL (0.34-5.60)
[2018-08-18 15:37] LABS: Urine Appearance Clear; Urine Bilirubin Negative (Negative); Urine Blood Negative (Negative); Urine Color Straw; Urine Glucose Negative (Negative); Urine Ketones Negative (Negative); Urine Nitrite Negative (Negative); Urine Protein Negative (Negative); Urine Specific Gravity 1.004 (1.010-1.030); Urine Urobilinogen Negative (Negative)
[2018-08-18 16:10] LABS: Urine Benzodiazepine Screen None Detected (None Detect); Urine Opiates Screen None Detected (None Detect)
[2018-08-18] MEDS ORDERED: Magnesium Oxide TAB* 400 MG PO ONE (16:14)
[2018-08-18 16:42] VITALS: BP 198/89
== END 2018-08-18 16:41 | disposition home or self-care (01) ==
LOC: ED 12:43
DX: S00.11XA Contusion of right eyelid and periocular area, initial encounter (principal); W18.30XA Fall on same level, unspecified, initial encounter; Y92.002 Bathroom of unspecified non-institutional (private) residence as the place of occurrence of the external cause; E87.1 Hypo-osmolality and hyponatremia; R55 Syncope and collapse; E11.9 Type 2 diabetes mellitus without complications; Z79.84 Long term (current) use of oral hypoglycemic drugs; E78.00 Pure hypercholesterolemia, unspecified; Z88.3 Allergy status to other anti-infective agents; Z88.5 Allergy status to narcotic agent; Z88.8 Allergy status to other drugs, medicaments and biological substances; Z91.048 Other nonmedicinal substance allergy status; Z87.891 Personal history of nicotine dependence
CPT/HCPCS: 36415; 70450; 70486; 71046; 80053; 80307; 80320; 81003; 83605; 83735; 83880; 84443; 84484; 85025; 85730; 93005; 99282; G0480